=== PATIENT | female | born 1965 | race Caucasian/White ===

== ENCOUNTER → 2016-11-02 | Outpatient (CLI) | payer OTHER, MEDICARE ==
[~2016-11-02] VITALS: Ht 167.6 cm; Wt 134.3 kg
[~2016-11-02] MED LIST: ADIPEX-P37.5 MG PO; ALEVE 220MG220 MG PO; ARTHROTEC 775 MG/TAB PO; ASPIRIN 32325 MG/TAB PO; CALAN120 MG PO; CALCIUM + D 5001 TAB PO; CALCIUM 600600 M2 PO; COLACE 100100 MG/CAP PO; CRESTOR20 MG PO; CRESTOR40 MG PO; DALMANE30 MG PO; DOXYCYCLINE 10100 MG PO; ENABLEX15 MG PO; FISH OIL 1000MG1 CAP PO; IMITREX100 MG PO; INDERAL LA 80MG80 MG PO; INDOCIN 25MG CA25 MG PO; JANUMET 500 MG-1 TAB PO; KLONOPIN 1MG1 MG PO; KLONOPIN1 MG PO; LAMICTAL 100MG100 MG PO; LAMICTAL 25MG T25 MG PO; LEVOXYL0.05 MG PO; LEVOXYL0.075 MG PO; LEXAPRO20 MG PO; LIDOCAINE NS; MAG-OX 400400 MG/TAB PO; METAXALL800 MG PO; MIDRIN 325 MG-11 CAP PO; MIRALAX PA17 GM/Dose PO; MIRALAX17 GM/DOSE PO; MOBIC15 MG PO; MULTI VITAMINS1 TAB PO; MYRBETR50MG PO; NAVANE; NAVANE10 MG PO; NEURONTIN100 MG/CAP PO; NEURONTIN300 MG/CAP PO; PHENTERMINE15 MG PO; PROBIOTIC PO; PROTONIX 40MG T40 MG PO; PROTONIX40 MG PO; RELPAX 40MG TAB40 MG PO; RELPAX40 MG PO; SAPHRIS10 MG SL; SENOKOT S 50 MG1 TAB PO; SENOKOT8.6 MG PO; SEROQUEL XR300 MG PO; SYSTANE 0.4%-0.1 SOL OP; THIOTHIXENE PO; TOPAMAX 100MG100 M1 PO; TOPAMAX100 MG PO; TOPAMAX50 MG PO; TORADOL 10MG TA10 MG PO; TRICOR145 MG PO; TRILIPIX 135MG PO; TYLENOL 500MG500 MG PO; VERAPAMIL120 MG PO; VESICARE5 MG PO; VICTOZA6 MG/ML SQ; VITAMIN E1000 U/CAP PO; VITAMIND3 5000 PO; WELLBUTRIN XL150 MG PO; ZOLOFT 50MG50 MG PO; ZYPREXA ZYD10 MG/TAB PO; [UNRECOGNIZED DRUG - OTHER]
[2016-11-02 16:09] VITALS: BP 144/73; PULSE 67
[2016-11-02 17:10] VITALS: BP 144/73; PULSE 67
== END ==
LOC: LIGHT 07:43 → BHSO 09:33 → LIGHT 16:05
DX: E11.9 Type 2 diabetes mellitus without complications (principal); G47.33 Obstructive sleep apnea (adult) (pediatric); E66.01 Morbid (severe) obesity due to excess calories; Z68.42 Body mass index [BMI] 45.0-49.9, adult; K21.9 Gastro-esophageal reflux disease without esophagitis

== ENCOUNTER → 2016-11-27 | Outpatient (CLI) | payer OTHER, MEDICARE | LOC: MC.RAD 11:25 | DX: Z12.31 Encounter for screening mammogram for malignant neoplasm of breast (principal) ==

== ENCOUNTER → 2016-12-10 | Outpatient (CLI) | payer OTHER, MEDICARE | LOC: BHSO 09:37 | DX: F41.1 Generalized anxiety disorder (principal) ==

== ENCOUNTER → 2016-12-17 | Outpatient (CLI) | payer OTHER, MEDICARE ==
[~2016-12-17] VITALS: Ht 167.6 cm; Wt 133.6 kg
[2016-12-17 10:42] VITALS: BP 131/61; PULSE 75
== END ==
LOC: LIGHT 10:35
DX: E11.9 Type 2 diabetes mellitus without complications (principal); K21.9 Gastro-esophageal reflux disease without esophagitis; G47.33 Obstructive sleep apnea (adult) (pediatric); E66.01 Morbid (severe) obesity due to excess calories; Z68.42 Body mass index [BMI] 45.0-49.9, adult

== ENCOUNTER → 2017-01-21 | Outpatient (CLI) | payer OTHER, MEDICARE ==
[~2017-01-21] VITALS: Ht 167.6 cm; Wt 135.9 kg
[2017-01-21 12:23] VITALS: BP 140/80; PULSE 80
== END ==
LOC: LIGHT 10:24
DX: E11.9 Type 2 diabetes mellitus without complications (principal); G47.33 Obstructive sleep apnea (adult) (pediatric); K21.9 Gastro-esophageal reflux disease without esophagitis; E66.01 Morbid (severe) obesity due to excess calories; Z68.42 Body mass index [BMI] 45.0-49.9, adult; Z90.3 Acquired absence of stomach [part of]; Z90.49 Acquired absence of other specified parts of digestive tract

== ENCOUNTER → 2017-01-21 | Outpatient (CLI) | payer OTHER, MEDICARE | LOC: BHSO 10:59 | DX: F20.9 Schizophrenia, unspecified (principal) ==

== ENCOUNTER 2017-02-13 22:42 | Emergency (ER) | payer OTHER, MEDICARE ==
[~2017-02-13] VITALS: Ht 167.6 cm; Wt 134.5 kg
[~2017-02-13 22:42] MED LIST changes: -ALEVE 220MG220 MG PO; -INDERAL LA 80MG80 MG PO; -MAG-OX 400400 MG/TAB PO; -SYSTANE 0.4%-0.1 SOL OP; -TORADOL 10MG TA10 MG PO; -TYLENOL 500MG500 MG PO
[2017-02-13 22:46] VITALS: TEMP 98
[2017-02-14 01:00] VITALS: BP 120/63; PULSE 60
[2017-02-22] MEDS ORDERED: INDERAL LA 80MG80 MG PO (15:28)
[2017-05-27] MEDS ORDERED: MAG-OX 400400 MG/TAB PO (13:12)
[2017-05-31] MEDS ORDERED: TORADOL 10MG TA10 MG PO (10:08)
[2017-05-31] MEDS ORDERED: SYSTANE 0.4%-0.1 SOL OP (10:08)
[2017-05-31] MEDS ORDERED: TYLENOL 500MG500 MG PO (10:10)
[2017-05-31] MEDS ORDERED: MIDRIN 325 MG-11 CAP PO (10:10)
[2017-05-31] MEDS ORDERED: ALEVE 220MG220 MG PO (10:11)
== END 2017-02-14 01:00 | disposition home or self-care (01) ==
LOC: COL.ER 22:42
DX: R51 Headache (principal); G43.909 Migraine, unspecified, not intractable, without status migrainosus; F25.9 Schizoaffective disorder, unspecified; F32.9 Major depressive disorder, single episode, unspecified; E11.9 Type 2 diabetes mellitus without complications; I10 Essential (primary) hypertension; Z98.84 Bariatric surgery status
CPT/HCPCS: J1100; J1110; J1885; J7030

== ENCOUNTER → 2017-02-22 | Outpatient (CLI) | payer OTHER, MEDICARE ==
[~2017-02-22] VITALS: Ht 167.6 cm; Wt 133.1 kg
[~2017-02-22] MED LIST changes: +ALEVE 220MG220 MG PO; +INDERAL LA 80MG80 MG PO; +MAG-OX 400400 MG/TAB PO; +SYSTANE 0.4%-0.1 SOL OP; +TORADOL 10MG TA10 MG PO; +TYLENOL 500MG500 MG PO
[2017-02-22 15:28] VITALS: BP 123/65; PULSE 66
[2017-03-01 09:44] VITALS: BP 116/59; PULSE 62
[2017-03-15 11:39] VITALS: BP 111/71; PULSE 67
== END ==
LOC: LIGHT 14:55
DX: E11.9 Type 2 diabetes mellitus without complications (principal); G47.33 Obstructive sleep apnea (adult) (pediatric); E66.01 Morbid (severe) obesity due to excess calories; Z68.42 Body mass index [BMI] 45.0-49.9, adult; Z71.3 Dietary counseling and surveillance; K21.9 Gastro-esophageal reflux disease without esophagitis

== ENCOUNTER → 2017-03-05 | Outpatient (CLI) | payer OTHER, MEDICARE | LOC: BHSO 11:23 | DX: F20.9 Schizophrenia, unspecified (principal) ==

== ENCOUNTER → 2017-04-15 | Outpatient (CLI) | payer OTHER, MEDICARE ==
[~2017-04-15] VITALS: Ht 167.6 cm; Wt 134.5 kg
[2017-04-15 11:16] VITALS: BP 119/66; PULSE 56
== END ==
LOC: LIGHT 11:15
DX: E11.9 Type 2 diabetes mellitus without complications (principal); G47.33 Obstructive sleep apnea (adult) (pediatric); E66.01 Morbid (severe) obesity due to excess calories; Z68.42 Body mass index [BMI] 45.0-49.9, adult; Z71.3 Dietary counseling and surveillance; K21.9 Gastro-esophageal reflux disease without esophagitis

== ENCOUNTER → 2017-05-06 | Outpatient (CLI) | payer OTHER, MEDICARE | LOC: BHSO 10:45 | DX: F25.0 Schizoaffective disorder, bipolar type (principal) ==

== ENCOUNTER → 2017-05-27 | Outpatient (CLI) | payer OTHER, MEDICARE ==
[~2017-05-27] VITALS: Ht 167.6 cm; Wt 134.9 kg
[~2017-05-27] MED LIST changes: +DEPAKOTE ER 25250 MG PO
[2017-05-27 13:13] VITALS: BP 120/56; PULSE 60
== END ==
LOC: LIGHT 13:02
DX: E11.9 Type 2 diabetes mellitus without complications (principal); G47.33 Obstructive sleep apnea (adult) (pediatric); E66.01 Morbid (severe) obesity due to excess calories; Z68.43 Body mass index [BMI] 50.0-59.9, adult; Z71.3 Dietary counseling and surveillance; K21.9 Gastro-esophageal reflux disease without esophagitis

== ENCOUNTER → 2017-07-01 | Outpatient (CLI) | payer OTHER, MEDICARE ==
[~2017-07-01] VITALS: Ht 167.6 cm; Wt 133.6 kg
[2017-07-01 11:44] VITALS: BP 118/84; PULSE 72
== END ==
LOC: LIGHT 09:44
DX: E11.9 Type 2 diabetes mellitus without complications (principal); G47.33 Obstructive sleep apnea (adult) (pediatric); E66.01 Morbid (severe) obesity due to excess calories; Z68.42 Body mass index [BMI] 45.0-49.9, adult; Z71.3 Dietary counseling and surveillance; K21.9 Gastro-esophageal reflux disease without esophagitis

== ENCOUNTER → 2017-07-08 | Outpatient (CLI) | payer OTHER, MEDICARE | LOC: BHSO 11:23 | DX: F20.9 Schizophrenia, unspecified (principal) ==

== ENCOUNTER → 2017-08-12 | Outpatient (CLI) | payer OTHER, MEDICARE ==
[~2017-08-12] VITALS: Ht 167.6 cm; Wt 135.2 kg
[~2017-08-12] MED LIST changes: +ZANAFLEX 4MG TAB4 MG PO
[2017-08-12 14:15] VITALS: BP 130/76; PULSE 56
== END ==
LOC: LIGHT 11:09
DX: E11.9 Type 2 diabetes mellitus without complications (principal); G47.33 Obstructive sleep apnea (adult) (pediatric); E66.01 Morbid (severe) obesity due to excess calories; Z68.42 Body mass index [BMI] 45.0-49.9, adult; Z71.3 Dietary counseling and surveillance; K21.9 Gastro-esophageal reflux disease without esophagitis

== ENCOUNTER → 2017-08-31 | Outpatient (CLI) | payer OTHER, MEDICARE | LOC: BHSO 09:54 | DX: F31.73 Bipolar disorder, in partial remission, most recent episode manic (principal) ==

== ENCOUNTER → 2017-10-22 | Outpatient (CLI) | payer OTHER, MEDICARE ==
[~2017-10-22] MED LIST changes: +MELATONIN5 M1 SL; +TOPAMAX 25MG25 M1 PO; +ZESTRIL 20MG TA20 MG PO
== END ==
LOC: BHSO 11:08
DX: F31.73 Bipolar disorder, in partial remission, most recent episode manic (principal)
CPT/HCPCS: G0463

== ENCOUNTER → 2017-10-28 | Outpatient (CLI) | payer OTHER, MEDICARE ==
[~2017-10-28] VITALS: Ht 167.6 cm; Wt 141.7 kg
[2017-10-28 10:56] VITALS: BP 116/80; PULSE 72
== END ==
LOC: SUN.DIA 07-21 09:44 → LIGHT 10:24
DX: E11.9 Type 2 diabetes mellitus without complications (principal); G47.33 Obstructive sleep apnea (adult) (pediatric); E66.01 Morbid (severe) obesity due to excess calories; Z68.43 Body mass index [BMI] 50.0-59.9, adult; Z71.3 Dietary counseling and surveillance; K21.9 Gastro-esophageal reflux disease without esophagitis
CPT/HCPCS: G0463

== ENCOUNTER → 2017-11-25 | Outpatient (CLI) | payer OTHER, MEDICARE ==
[~2017-11-25] VITALS: Ht 167.6 cm; Wt 138.8 kg
[2017-11-25 09:55] VITALS: BP 114/80; PULSE 64
== END ==
LOC: LIGHT 09:00
DX: E11.9 Type 2 diabetes mellitus without complications (principal); G47.33 Obstructive sleep apnea (adult) (pediatric); E66.01 Morbid (severe) obesity due to excess calories; Z68.42 Body mass index [BMI] 45.0-49.9, adult; Z71.3 Dietary counseling and surveillance; K21.9 Gastro-esophageal reflux disease without esophagitis
CPT/HCPCS: G0463

== ENCOUNTER 2017-11-29 19:43 | Emergency (ER) | payer OTHER, MEDICARE ==
[~2017-11-29] VITALS: Ht 167.6 cm; Wt 130.4 kg
[2017-11-29 19:49] VITALS: BP 115/58; TEMP 97
[2017-11-29 22:51] VITALS: PULSE 76
== END 2017-11-29 22:54 | disposition home or self-care (01) ==
LOC: COL.ER 19:43
DX: G43.909 Migraine, unspecified, not intractable, without status migrainosus (principal); E11.9 Type 2 diabetes mellitus without complications; I10 Essential (primary) hypertension; F31.9 Bipolar disorder, unspecified; E03.9 Hypothyroidism, unspecified; Z90.49 Acquired absence of other specified parts of digestive tract; Z90.89 Acquired absence of other organs; Z98.84 Bariatric surgery status; Z98.890 Other specified postprocedural states
CPT/HCPCS: J1200; J1885; J7030

== ENCOUNTER → 2017-12-09 | Outpatient (CLI) | payer OTHER, MEDICARE | LOC: MC.RAD 14:20 | DX: Z12.31 Encounter for screening mammogram for malignant neoplasm of breast (principal) ==

== ENCOUNTER → 2017-12-23 | Outpatient (CLI) | payer OTHER, MEDICARE ==
[~2017-12-23] VITALS: Ht 167.6 cm; Wt 138.3 kg
[~2017-12-23] MED LIST changes: +ATARAX 25MG25 MG/TAB PO; +LOMAIRA8 MG PO
[2017-12-23 11:31] VITALS: BP 120/84; PULSE 68
== END ==
LOC: LIGHT 10:56
DX: E11.9 Type 2 diabetes mellitus without complications (principal); G47.33 Obstructive sleep apnea (adult) (pediatric); E66.01 Morbid (severe) obesity due to excess calories; Z68.42 Body mass index [BMI] 45.0-49.9, adult; Z71.3 Dietary counseling and surveillance; K21.9 Gastro-esophageal reflux disease without esophagitis
CPT/HCPCS: G0463

== ENCOUNTER → 2018-01-17 | Outpatient (CLI) | payer OTHER, MEDICARE | LOC: MHCPAIN 14:51 | DX: G89.29 Other chronic pain (principal); M47.812 Spondylosis without myelopathy or radiculopathy, cervical region; R51 Headache | CPT/HCPCS: G0463 ==

== ENCOUNTER → 2018-01-21 | Outpatient (CLI) | payer OTHER, MEDICARE ==
[~2018-01-21] MED LIST changes: +SKELAXIN 800MG800 MG PO; +VITAMIN B COMPL1 SGL PO
== END ==
LOC: BHSO 11:04
DX: F25.0 Schizoaffective disorder, bipolar type (principal)
CPT/HCPCS: G0463

== ENCOUNTER → 2018-01-27 | Outpatient (CLI) | payer OTHER, MEDICARE ==
[~2018-01-27] VITALS: Ht 167.6 cm; Wt 136.8 kg
[2018-01-27 08:54] VITALS: BP 124/84; PULSE 76
== END ==
LOC: LIGHT 08:38
DX: E11.9 Type 2 diabetes mellitus without complications (principal); G47.33 Obstructive sleep apnea (adult) (pediatric); E66.01 Morbid (severe) obesity due to excess calories; Z68.42 Body mass index [BMI] 45.0-49.9, adult; Z71.3 Dietary counseling and surveillance; K21.9 Gastro-esophageal reflux disease without esophagitis
CPT/HCPCS: G0463

== ENCOUNTER 2018-02-28 05:59 | Emergency (ER) | payer OTHER, MEDICARE ==
[~2018-02-28] VITALS: Ht 167.6 cm; Wt 133.5 kg
[~2018-02-28 05:59] MED LIST changes: +D3-5050000 IU PO; -VITAMIND3 5000 PO
[2018-02-28 06:04] VITALS: TEMP 97.4
[2018-02-28] MEDS ORDERED: PHENERGAN 25 TA25 MG PO (06:21)
[2018-02-28] MEDS ORDERED: TORADOL 10MG TA10 MG PO (07:33)
[2018-02-28 08:20] VITALS: BP 124/82; PULSE 71
== END 2018-02-28 08:26 | disposition home or self-care (01) ==
LOC: COL.ER 05:59
DX: G43.909 Migraine, unspecified, not intractable, without status migrainosus (principal)
CPT/HCPCS: J0780; J1200; J1885; J2550; J7030

== ENCOUNTER → 2018-03-10 | Outpatient (CLI) | payer OTHER, MEDICARE ==
[~2018-03-10] VITALS: Ht 167.6 cm; Wt 138.6 kg
[~2018-03-10] MED LIST changes: +PHENERGAN 25 TA25 MG PO
[2018-03-10 11:38] VITALS: BP 120/76; PULSE 68
== END ==
LOC: LIGHT 11:07
DX: E11.9 Type 2 diabetes mellitus without complications (principal); G47.33 Obstructive sleep apnea (adult) (pediatric); E66.01 Morbid (severe) obesity due to excess calories; Z68.42 Body mass index [BMI] 45.0-49.9, adult; Z71.3 Dietary counseling and surveillance; K21.9 Gastro-esophageal reflux disease without esophagitis
CPT/HCPCS: G0463

== ENCOUNTER 2018-05-01 11:48 | Emergency (ER) | payer OTHER, MEDICARE ==
[~2018-05-01] VITALS: Ht 167.6 cm; Wt 143.2 kg
[2018-05-01 11:50] VITALS: TEMP 97.9
[2018-05-01 12:20] LABS: BASO % 0.4 % (0.0-2.0); EOS # 0.2 (0.0-0.7); EOS % 1.6 % (0-4.0); GRAN # 6.7 (1.4-6.5); GRAN % 68.5 % (42.2-75.2); HEMATOCRIT 39.9 % (37.0-47.0); HEMOGLOBIN 12.7 g/dl (12.5-16.0); LYMPH # 2.2 (1.2-3.4); LYMPH % 22.2 % (20.0-51.0); MEAN CELL VOLUME 87 fl (80.0-100.0); MEAN CORPUSCULAR HEMOGLOBIN 28 pg (27.0-31.0); MEAN CORPUSCULAR HGB CONC 32 g/dl (33.0-37.0); MONO # 0.7 (0.1-0.6); MONO % 6.9 % (1.7-9.3); PLATELET COUNT 235 K/mm3 (130-400); RED BLOOD COUNT 4.57 M/mm3 (4.10-5.30); REDCELL DISTRIBUTION WIDTH-CV 13.6 % (11.5-14.5)
[2018-05-01 12:28] LABS: ALANINE AMINOTRANSFERASE 26 U/L (9-52); ALBUMIN 3.9 gm/dL (3.5-5.0); ALKALINE PHOSPHATASE 55 U/L (50-136); ANION GAP 9 mmol/L (7-16); AST,SGOT 29 U/L (15-37); BILIRUBIN,TOTAL 0.2 mg/dL (0.0-1.0); BLOOD UREA NITROGEN 11 mg/dL (7-17); CALCIUM 8.9 mg/dL (8.4-10.2); CARBON DIOXIDE 28 mmol/L (22-30); CHLORIDE 105 mmol/L (98-107); CREATININE, serum 0.65 mg/dL (0.52-1.25); GLUCOSE 121 mg/dL (74-106); SODIUM 142 mmol/L (137-145); TOTAL PROTEIN 6.9 gm/dL (6.4-8.2)
[2018-05-01 12:42] LABS: TROPONIN-I < 0.012 ng/mL (0.000-0.034)
[2018-05-01 15:28] VITALS: BP 132/69; PULSE 69
== END 2018-05-01 15:37 | disposition home or self-care (01) ==
LOC: COL.ER 11:48
PROVIDERS: Emergency Medicine
DX: R07.89 Other chest pain (principal); E11.9 Type 2 diabetes mellitus without complications; F25.9 Schizoaffective disorder, unspecified
CPT/HCPCS: J1885; J2765; J7030

== ENCOUNTER → 2018-05-12 | Outpatient (CLI) | payer OTHER, MEDICARE ==
[~2018-05-12] VITALS: Ht 167.6 cm; Wt 138.1 kg
[~2018-05-12] MED LIST changes: +FLOMAX 0.40.4 MG/CAP PO; +ZESTRIL 10MG10 MG PO
[2018-05-12 11:37] VITALS: BP 124/86; PULSE 80
== END ==
LOC: LIGHT 11:10
DX: E11.9 Type 2 diabetes mellitus without complications (principal); G47.33 Obstructive sleep apnea (adult) (pediatric); K21.9 Gastro-esophageal reflux disease without esophagitis; E66.01 Morbid (severe) obesity due to excess calories; Z68.43 Body mass index [BMI] 50.0-59.9, adult; Z71.3 Dietary counseling and surveillance
CPT/HCPCS: G0463

== ENCOUNTER → 2018-05-13 | Outpatient (CLI) | payer OTHER, MEDICARE | LOC: BHSO 13:01 | DX: F25.0 Schizoaffective disorder, bipolar type (principal) | CPT/HCPCS: G0463 ==

== ENCOUNTER → 2018-06-16 | Outpatient (CLI) | payer OTHER, MEDICARE ==
[~2018-06-16] VITALS: Ht 167.6 cm; Wt 140.6 kg
[2018-06-16 13:38] VITALS: BP 126/84; PULSE 72
== END ==
LOC: LIGHT 11:39
DX: E11.9 Type 2 diabetes mellitus without complications (principal); G47.33 Obstructive sleep apnea (adult) (pediatric); K21.9 Gastro-esophageal reflux disease without esophagitis; E66.01 Morbid (severe) obesity due to excess calories; Z68.42 Body mass index [BMI] 45.0-49.9, adult; Z71.3 Dietary counseling and surveillance
CPT/HCPCS: G0463

== ENCOUNTER → 2018-08-12 | Outpatient (CLI) | payer OTHER, MEDICARE | LOC: BHSO 13:08 | DX: F25.0 Schizoaffective disorder, bipolar type (principal) | CPT/HCPCS: G0463 ==

== ENCOUNTER 2018-08-24 19:40 | Emergency (ER) | payer OTHER, MEDICARE ==
[~2018-08-24] VITALS: Ht 167.6 cm; Wt 140.0 kg
[2018-08-24 19:48] VITALS: TEMP 98
[2018-08-24] MEDS ORDERED: SAPHRIS10 MG SL (21:16)
[2018-08-24 22:06] VITALS: BP 122/71; PULSE 76
== END 2018-08-24 22:17 | disposition home or self-care (01) ==
LOC: COL.ER 19:40
DX: G43.909 Migraine, unspecified, not intractable, without status migrainosus (principal); E11.9 Type 2 diabetes mellitus without complications; E03.9 Hypothyroidism, unspecified; F31.9 Bipolar disorder, unspecified; F25.9 Schizoaffective disorder, unspecified; Z90.89 Acquired absence of other organs; Z90.49 Acquired absence of other specified parts of digestive tract
CPT/HCPCS: J1200; J1885; J2060; J2765; J7040

== ENCOUNTER 2018-09-16 03:16 | Emergency (ER) | payer OTHER, MEDICARE ==
[~2018-09-16] VITALS: Ht 167.6 cm; Wt 140.0 kg
[~2018-09-16 03:16] MED LIST changes: +CRESTOR 10MG10 MG PO; -CRESTOR20 MG PO; +PROBIOTIC ACID1 EAC3 PO; -PROBIOTIC PO; -SENOKOT S 50 MG1 TAB PO
[2018-09-16 03:25] VITALS: TEMP 98.6
[2018-09-16] MEDS ORDERED: VITAMIND3 5000 (03:57)
[2018-09-16] MEDS ORDERED: SAPHRIS5 MG SL (04:00)
[2018-09-16] MEDS ORDERED: LOMAIRA8 MG PO (04:03)
[2018-09-16] MEDS ORDERED: AIMOVIG AU70 MG/1 ML SQ (04:04)
[2018-09-16] MEDS ORDERED: KENALOG DENTAL P5 GM DT (04:05)
[2018-09-16 07:24] VITALS: BP 128/60; PULSE 82
== END 2018-09-16 07:25 | disposition home or self-care (01) ==
LOC: COL.ER 03:16
DX: G43.909 Migraine, unspecified, not intractable, without status migrainosus (principal); E11.9 Type 2 diabetes mellitus without complications; I10 Essential (primary) hypertension; E03.9 Hypothyroidism, unspecified; E78.5 Hyperlipidemia, unspecified; F20.9 Schizophrenia, unspecified; E66.9 Obesity, unspecified
CPT/HCPCS: J1170; J1885

== ENCOUNTER 2018-09-19 03:38 | Emergency (ER) | payer OTHER, MEDICARE ==
[~2018-09-19] VITALS: Ht 167.6 cm; Wt 140.0 kg
[~2018-09-19 03:38] MED LIST changes: +AIMOVIG AU70 MG/1 ML SQ; +KENALOG DENTAL P5 GM DT; +SAPHRIS5 MG SL; +VITAMIND3 5000
[2018-09-19 04:31] VITALS: TEMP 98.5
[2018-09-19] MEDS ORDERED: ZOMIG5 M1 NS (04:40)
[2018-09-19 05:33] VITALS: BP 128/86; PULSE 78
== END 2018-09-19 05:33 | disposition home or self-care (01) ==
LOC: COL.ER 03:38
DX: G43.909 Migraine, unspecified, not intractable, without status migrainosus (principal)
CPT/HCPCS: J1200; J2550; J7030

== ENCOUNTER → 2018-09-22 | Outpatient (CLI) | payer OTHER, MEDICARE ==
[~2018-09-22] VITALS: Ht 167.6 cm; Wt 142.0 kg
[~2018-09-22] MED LIST changes: +ZOMIG5 M1 NS
[2018-09-22 10:55] VITALS: BP 126/76; PULSE 64
== END ==
LOC: LIGHT 10:48
DX: E11.9 Type 2 diabetes mellitus without complications (principal); G47.33 Obstructive sleep apnea (adult) (pediatric); K21.9 Gastro-esophageal reflux disease without esophagitis; E66.01 Morbid (severe) obesity due to excess calories; Z68.43 Body mass index [BMI] 50.0-59.9, adult; Z71.3 Dietary counseling and surveillance
CPT/HCPCS: G0463

== ENCOUNTER → 2018-10-21 | Outpatient (CLI) | payer OTHER, MEDICARE | LOC: BHSO 13:16 | DX: F25.0 Schizoaffective disorder, bipolar type (principal) | CPT/HCPCS: G0463 ==

== ENCOUNTER → 2018-11-03 | Outpatient (CLI) | payer OTHER, MEDICARE ==
[~2018-11-03] VITALS: Ht 167.6 cm; Wt 140.6 kg
[2018-11-03 11:22] VITALS: BP 136/90; PULSE 64
== END ==
LOC: LIGHT 10:40
DX: E11.9 Type 2 diabetes mellitus without complications (principal); G47.33 Obstructive sleep apnea (adult) (pediatric); K21.9 Gastro-esophageal reflux disease without esophagitis; E66.01 Morbid (severe) obesity due to excess calories; Z68.43 Body mass index [BMI] 50.0-59.9, adult; Z71.3 Dietary counseling and surveillance
CPT/HCPCS: G0463

== ENCOUNTER → 2018-12-15 | Outpatient (CLI) | payer OTHER, MEDICARE ==
[~2018-12-15] VITALS: Ht 167.6 cm; Wt 140.4 kg
[~2018-12-15] MED LIST changes: +ADVIL MIGRAINE200 MG PO; +BACTROBAN 22GM22 GM TP; +BOTOX200 U INJ; +DETROL LA4 PO; +FIORICET 325 MG1 TA1 PO; -MYRBETR50MG PO; +NAC600 MG PO; -SAPHRIS5 MG SL; +SENOKOT S 50 MG1 TAB PO; +TUMERIC SUPPLEMENT; +VITAMIND3 5000 PO
[2018-12-15 11:11] VITALS: BP 120/70; PULSE 60
== END ==
LOC: LIGHT 10:44
DX: E11.65 Type 2 diabetes mellitus with hyperglycemia (principal); G47.33 Obstructive sleep apnea (adult) (pediatric); K21.9 Gastro-esophageal reflux disease without esophagitis; E66.01 Morbid (severe) obesity due to excess calories; Z68.43 Body mass index [BMI] 50.0-59.9, adult; Z71.3 Dietary counseling and surveillance
CPT/HCPCS: G0463

== ENCOUNTER → 2018-12-19 | Outpatient (CLI) | payer OTHER, MEDICARE | LOC: COL.RAD 10:07 | DX: G43.709 Chronic migraine without aura, not intractable, without status migrainosus (principal) | CPT/HCPCS: A9585 ==

== ENCOUNTER 2018-12-24 05:58 | Emergency (ER) | payer OTHER, MEDICARE ==
[~2018-12-24] VITALS: Ht 167.6 cm; Wt 140.9 kg
[2018-12-24 06:01] VITALS: TEMP 98.7
[2018-12-24] MEDS ORDERED: LEXAPRO 10MG10 MG PO (06:39)
[2018-12-24] MEDS ORDERED: SYNTHROID0.075 MG/T PO (06:39)
[2018-12-24] MEDS ORDERED: WELLBUTRIN XL150 MG PO (06:40)
[2018-12-24] MEDS ORDERED: CRESTOR 10MG10 MG PO (06:41)
[2018-12-24] MEDS ORDERED: DETROL LA4 PO (06:42)
[2018-12-24] MEDS ORDERED: SAPHRIS10 MG SL (06:43)
[2018-12-24] MEDS ORDERED: LAMICTAL 100MG100 MG PO (06:43)
[2018-12-24] MEDS ORDERED: PROTONIX 40MG T40 MG PO (06:44)
[2018-12-24] MEDS ORDERED: LAMICTAL 25MG T25 MG PO (06:44)
[2018-12-24] MEDS ORDERED: TRILIPIX 135MG PO (06:44)
[2018-12-24] MEDS ORDERED: PRINIVIL10 MG PO (06:45)
[2018-12-24] MEDS ORDERED: FLOMAX 0.40.4 MG/CAP PO (06:45)
[2018-12-24] MEDS ORDERED: CARAFATE S1 GM/10 ML PO (07:52)
[2018-12-24 08:09] VITALS: BP 106/65; PULSE 76
== END 2018-12-24 08:10 | disposition home or self-care (01) ==
LOC: COL.ER 05:58
DX: R13.10 Dysphagia, unspecified (principal); E11.9 Type 2 diabetes mellitus without complications; I10 Essential (primary) hypertension; E78.00 Pure hypercholesterolemia, unspecified; G43.909 Migraine, unspecified, not intractable, without status migrainosus
CPT/HCPCS: J1885

== ENCOUNTER → 2019-01-04 | Outpatient (CLI) | payer OTHER, MEDICARE ==
[~2019-01-04] MED LIST changes: +CARAFATE S1 GM/10 ML PO; +LEXAPRO 10MG10 MG PO; +PRINIVIL10 MG PO; +SYNTHROID0.075 MG/T PO
== END ==
LOC: MC.RAD 10:38
DX: Z12.31 Encounter for screening mammogram for malignant neoplasm of breast (principal)

== ENCOUNTER → 2019-01-12 | Outpatient (CLI) | payer OTHER, MEDICARE ==
[~2019-01-12] VITALS: Ht 167.6 cm; Wt 139.7 kg
[~2019-01-12] MED LIST changes: +AJOVY225 MG/1.5 SQ; +MYRBETR50MG PO
[2019-01-12 11:07] VITALS: BP 130/76; PULSE 84
== END ==
LOC: LIGHT 10:51
DX: E11.65 Type 2 diabetes mellitus with hyperglycemia (principal); G47.33 Obstructive sleep apnea (adult) (pediatric); K21.9 Gastro-esophageal reflux disease without esophagitis; E66.01 Morbid (severe) obesity due to excess calories; Z68.42 Body mass index [BMI] 45.0-49.9, adult; Z71.3 Dietary counseling and surveillance
CPT/HCPCS: G0463

== ENCOUNTER → 2019-01-17 | Outpatient (CLI) | payer OTHER, MEDICARE | LOC: BHSO 10:23 | DX: F25.0 Schizoaffective disorder, bipolar type (principal) | CPT/HCPCS: G0463 ==

== ENCOUNTER → 2019-02-23 | Outpatient (CLI) | payer OTHER, MEDICARE ==
[~2019-02-23] VITALS: Ht 167.6 cm; Wt 139.3 kg
[~2019-02-23] MED LIST changes: +LATUDA40 MG PO; +MAGNESIUM500 MG PO
[2019-02-23 10:43] VITALS: BP 116/80; PULSE 76
== END ==
LOC: LIGHT 10:30
DX: E11.65 Type 2 diabetes mellitus with hyperglycemia (principal); G47.33 Obstructive sleep apnea (adult) (pediatric); K21.9 Gastro-esophageal reflux disease without esophagitis; E66.01 Morbid (severe) obesity due to excess calories; Z68.42 Body mass index [BMI] 45.0-49.9, adult; Z71.3 Dietary counseling and surveillance
CPT/HCPCS: G0463

== ENCOUNTER → 2019-02-28 | Outpatient (CLI) | payer OTHER, MEDICARE | LOC: BHSO 10:12 | DX: F25.0 Schizoaffective disorder, bipolar type (principal) | CPT/HCPCS: G0463 ==

== ENCOUNTER → 2019-03-29 | Outpatient (CLI) | payer OTHER, MEDICARE | LOC: BHSO 13:36 | DX: F25.0 Schizoaffective disorder, bipolar type (principal) | CPT/HCPCS: G0463 ==

== ENCOUNTER → 2019-05-04 | Outpatient (CLI) | payer OTHER, MEDICARE ==
[~2019-05-04] VITALS: Ht 167.6 cm; Wt 139.5 kg
[~2019-05-04] MED LIST changes: +ALDACTONE50 MG PO; +B COMPLEX #11 TAB PO; +CYMBALTA 60MG60 MG PO; +DESOWEN0.05% TP; -MAGNESIUM500 MG PO; +MULTIPLE VITAMI1 CAP PO; +TUMERIC PO; +VIACTIVE PO; +WELLBUTRIN SR200 MG PO
[2019-05-04 13:11] VITALS: BP 112/84; PULSE 84
== END ==
LOC: LIGHT 03-23 14:46
DX: E11.65 Type 2 diabetes mellitus with hyperglycemia (principal); G47.33 Obstructive sleep apnea (adult) (pediatric); K21.9 Gastro-esophageal reflux disease without esophagitis; E66.01 Morbid (severe) obesity due to excess calories; Z68.43 Body mass index [BMI] 50.0-59.9, adult; Z71.3 Dietary counseling and surveillance
CPT/HCPCS: G0463

== ENCOUNTER → 2019-05-04 | Outpatient (CLI) | payer OTHER, MEDICARE | LOC: BHSO 14:18 | DX: F25.0 Schizoaffective disorder, bipolar type (principal) | CPT/HCPCS: G0463 ==

== ENCOUNTER 2019-06-05 11:21 | Day surgery (SDC) | payer OTHER, MEDICARE ==
[~2019-06-05] VITALS: Ht 167.7 cm; Wt 139.7 kg
[2019-06-05] VITALS (11 sets, daily range): BP systolic 97–135; BP diastolic 53–84; PULSE 63–96; TEMP 97.4
[~2019-06-05 11:21] MED LIST changes: +BOTOX200 U; +EXCEDRIN1 TAB PO; +SYSTANE GEL EYE10 ML OP; +ZANTAC 150MG T150 MG PO
[2019-06-05 12:24] LABS: HEMATOCRIT 39.6 % (37.0-47.0); HEMOGLOBIN 12.6 g/dl (12.5-16.0); MEAN CELL VOLUME 85 fl (80.0-100.0); MEAN CORPUSCULAR HEMOGLOBIN 27 pg (27.0-31.0); MEAN CORPUSCULAR HGB CONC 32 g/dl (33.0-37.0); MEAN PLATELET VOLUME 10.7 fl (7.4-10.4); PLATELET COUNT 251 K/mm3 (130-400); RED BLOOD COUNT 4.68 M/mm3 (4.10-5.30); REDCELL DISTRIBUTION WIDTH-CV 14.7 % (11.5-14.5)
[2019-06-05 12:35] LABS: PROTHROMBIN TIME 11.7 SECONDS (9.7-12.8)
[2019-06-05 12:38] LABS: CALCIUM 9.3 mg/dL (8.4-10.2); CREATININE, serum 0.58 (0.52-1.25); POTASSIUM 4.1 mmol/L (3.4-5.0)
[2019-06-05] MEDS ORDERED: ASPIRIN 81M81 MG/TA2 PO (12:49)
--- NOTE | 2019-06-05 14:52 | NUR ---
Pt to procedure.
--- NOTE | 2019-06-05 15:12 | NUR ---
SEE MERGE DOCUMENTATION FOR MEDICATION ADMINISTRATION TIMES AND INTRA/POST PROCEDURE SEDATION ASSESSMENTS. PT EATING LIGHT BREAKFAST THIS AM, NOTIFIED AND OK TO PROCEED. PLAN FOR RIGHT RADIAL ARTERIAL ACCESS AND RIGHT FEMORAL VENOUS ACCESS.
--- NOTE | 2019-06-05 18:54 | NUR ---
Report to Marizol Acevedo.
--- NOTE | 2019-06-05 19:05 | NUR ---
removed radial band, no bleeding or pain or swelling, 2x2 dressing with coban applied, pt walked in neal, up to b/r, groin site remains the same. IV d'cd intact and pt dressed. no questions or concerns. Pt discharged via w/c to car with at 1920
== END 2019-06-05 19:20 | disposition home or self-care (01) ==
LOC: COL.CAR 11:21
PROVIDERS: Internal Medicine Cardiovascular Disease
DX: R07.89 Other chest pain (principal); I25.10 Atherosclerotic heart disease of native coronary artery without angina pectoris; I10 Essential (primary) hypertension; E11.9 Type 2 diabetes mellitus without complications; G47.33 Obstructive sleep apnea (adult) (pediatric); E78.5 Hyperlipidemia, unspecified; E03.9 Hypothyroidism, unspecified; Z79.899 Other long term (current) drug therapy; Z90.49 Acquired absence of other specified parts of digestive tract; Z98.84 Bariatric surgery status; E66.9 Obesity, unspecified; Z68.42 Body mass index [BMI] 45.0-49.9, adult; Z80.9 Family history of malignant neoplasm, unspecified
CPT/HCPCS: J1644; J2250; J3010; Q9967

== ENCOUNTER 2019-06-16 00:29 | Emergency (ER) | payer OTHER, MEDICARE ==
[~2019-06-16] VITALS: Ht 167.6 cm; Wt 136.4 kg
[~2019-06-16 00:29] MED LIST changes: +ASPIRIN 81M81 MG/TA2 PO
[2019-06-16 00:34] VITALS: BP 138/72; TEMP 98.5
[2019-06-16 01:34] LABS: BASO % 0.4 % (0.0-2.0); EOS # 0.1 (0.0-0.7); EOS % 1.2 % (0-4.0); GRAN # 6.8 (1.4-6.5); GRAN % 59.9 % (42.2-75.2); HEMOGLOBIN 13.3 g/dl (12.5-16.0); LYMPH # 3.4 (1.2-3.4); LYMPH % 30.1 % (20.0-51.0); MEAN CELL VOLUME 85 fl (80.0-100.0); MEAN CORPUSCULAR HEMOGLOBIN 27 pg (27.0-31.0); MEAN CORPUSCULAR HGB CONC 32 g/dl (33.0-37.0); MEAN PLATELET VOLUME 10.4 fl (7.4-10.4); MONO # 0.9 (0.1-0.6); MONO % 7.9 % (1.7-9.3); PLATELET COUNT 291 K/mm3 (130-400); RED BLOOD COUNT 4.97 M/mm3 (4.10-5.30); REDCELL DISTRIBUTION WIDTH-CV 14.6 % (11.5-14.5)
[2019-06-16 01:44] LABS: CALCIUM 9.6 mg/dL (8.4-10.2); CREATININE, serum 0.63 (0.52-1.25)
[2019-06-16 04:25] VITALS: PULSE 74
== END 2019-06-16 04:25 | disposition home or self-care (01) ==
LOC: COL.ER 00:29
PROVIDERS: Physician Assistant
DX: G43.909 Migraine, unspecified, not intractable, without status migrainosus (principal)
CPT/HCPCS: J1200; J1885; J2765; J7030

== ENCOUNTER 2019-06-26 02:06 | Emergency (ER) | payer OTHER, MEDICARE ==
[~2019-06-26] VITALS: Ht 167.6 cm; Wt 137.7 kg
[2019-06-26 02:10] VITALS: BP 133/88; TEMP 98
[2019-06-26 04:25] VITALS: PULSE 92
== END 2019-06-26 04:25 | disposition home or self-care (01) ==
LOC: COL.ER 02:06
DX: G43.909 Migraine, unspecified, not intractable, without status migrainosus (principal); I10 Essential (primary) hypertension; E11.9 Type 2 diabetes mellitus without complications; E03.9 Hypothyroidism, unspecified; E78.5 Hyperlipidemia, unspecified; K58.9 Irritable bowel syndrome, unspecified
CPT/HCPCS: J1200; J1885; J2550

== ENCOUNTER 2019-06-26 17:04 | Emergency (ER) | payer OTHER, MEDICARE ==
[~2019-06-26] VITALS: Ht 167.6 cm; Wt 137.7 kg
[2019-06-26 17:11] VITALS: BP 135/75; TEMP 98.5
[2019-06-26 18:42] LABS: BASO # 0.1 (0.0-0.2); BASO % 0.4 % (0.0-2.0); EOS # 0.2 (0.0-0.7); EOS % 1.6 % (0-4.0); GRAN # 6.8 (1.4-6.5); GRAN % 57.7 % (42.2-75.2); HEMATOCRIT 39.1 % (37.0-47.0); HEMOGLOBIN 12.6 g/dl (12.5-16.0); LYMPH # 3.8 (1.2-3.4); LYMPH % 32.3 % (20.0-51.0); MEAN CELL VOLUME 83 fl (80.0-100.0); MEAN CORPUSCULAR HEMOGLOBIN 27 pg (27.0-31.0); MEAN CORPUSCULAR HGB CONC 32 g/dl (33.0-37.0); MEAN PLATELET VOLUME 11.1 fl (7.4-10.4); MONO # 0.9 (0.1-0.6); MONO % 7.7 % (1.7-9.3); PLATELET COUNT 277 K/mm3 (130-400); RED BLOOD COUNT 4.69 M/mm3 (4.10-5.30); REDCELL DISTRIBUTION WIDTH-CV 14.2 % (11.5-14.5)
[2019-06-26 18:43] LABS: ALBUMIN 4.1 gm/dL (3.5-5.0); BILIRUBIN,TOTAL 0.3 mg/dL (0.0-1.0); C-REACTIVE PROTEIN 1.2 mg/dL (0.0-0.9); CALCIUM 8.9 mg/dL (8.4-10.2); CREATININE, serum 0.65 (0.52-1.25); POTASSIUM 3.9 mmol/L (3.4-5.0)
[2019-06-26 19:16] VITALS: PULSE 90
== END 2019-06-26 19:19 | disposition home or self-care (01) ==
LOC: COL.ER 17:04
PROVIDERS: Nurse Practitioner
DX: G43.909 Migraine, unspecified, not intractable, without status migrainosus (principal); E11.9 Type 2 diabetes mellitus without complications; I10 Essential (primary) hypertension; F32.9 Major depressive disorder, single episode, unspecified; E03.9 Hypothyroidism, unspecified; F25.9 Schizoaffective disorder, unspecified; K58.9 Irritable bowel syndrome, unspecified; Z79.82 Long term (current) use of aspirin
CPT/HCPCS: J1200; J1885; J2550

== ENCOUNTER 2019-06-26 22:35 | Emergency (ER) | payer OTHER, MEDICARE ==
[~2019-06-26] VITALS: Wt 137.7 kg
[2019-06-26 23:10] VITALS: BP 137/94; PULSE 75; TEMP 9.7
== END 2019-06-27 00:30 | disposition left against medical advice (07) ==
LOC: COL.ER 22:35
DX: G43.909 Migraine, unspecified, not intractable, without status migrainosus (principal)

== ENCOUNTER → 2019-06-27 | Outpatient (CLI) | payer OTHER, MEDICARE | LOC: BHSO 14:11 | DX: F25.0 Schizoaffective disorder, bipolar type (principal) | CPT/HCPCS: G0463 ==

== ENCOUNTER 2019-06-29 20:54 | Emergency (ER) | payer OTHER, MEDICARE ==
[~2019-06-29] VITALS: Ht 167.6 cm; Wt 138.6 kg
[2019-06-29 21:27] VITALS: TEMP 98.1
[2019-06-29 21:30] LABS: COLLECTION METHOD CLEAN CATCH
[2019-06-29 21:35] LABS: BASO # 0.1 (0.0-0.2); BASO % 0.5 % (0.0-2.0); EOS # 0.2 (0.0-0.7); EOS % 1.7 % (0-4.0); GRAN % 53.2 % (42.2-75.2); HEMATOCRIT 37.4 % (37.0-47.0); LYMPH # 3.3 (1.2-3.4); LYMPH % 35.2 % (20.0-51.0); MEAN CELL VOLUME 84 fl (80.0-100.0); MEAN CORPUSCULAR HEMOGLOBIN 27 pg (27.0-31.0); MEAN CORPUSCULAR HGB CONC 32 g/dl (33.0-37.0); MEAN PLATELET VOLUME 10.7 fl (7.4-10.4); MONO # 0.9 (0.1-0.6); MONO % 9.2 % (1.7-9.3); PLATELET COUNT 240 K/mm3 (130-400); RED BLOOD COUNT 4.45 M/mm3 (4.10-5.30); REDCELL DISTRIBUTION WIDTH-CV 14.2 % (11.5-14.5)
[2019-06-29 21:43] LABS: MUCOUS Present /lpf; PH 5 (5-8); SQUAMOUS EPITHELIAL 0-2 /hpf; URINE APPEARANCE Clear; URINE BACTERIA None Seen /hpf; URINE BILIRUBIN Negative (NEGATIVE); URINE BLOOD Negative (NEGATIVE); URINE COLOR Yellow; URINE GLUCOSE Negative (NEGATIVE); URINE KETONE Negative (NEGATIVE); URINE LEUKOCYTE ESTERASE 1+ (NEGATIVE); URINE NITRATE Negative (NEGATIVE); URINE PROTEIN(semi-quant) Negative (NEGATIVE); URINE UROBILINOGEN Negative (NEGATIVE)
[2019-06-29 22:02] LABS: ALANINE AMINOTRANSFERASE 45 U/L (9-52); ALBUMIN 3.6 gm/dL (3.5-5.0); ALKALINE PHOSPHATASE 84 U/L (50-136); ANION GAP 8 mmol/L (7-16); AST,SGOT 30 U/L (15-37); BILIRUBIN,TOTAL 0.1 mg/dL (0.0-1.0); BLOOD UREA NITROGEN 11 mg/dL (7-17); C-REACTIVE PROTEIN 1.2 mg/dL (0.0-0.9); CALCIUM 8.8 mg/dL (8.4-10.2); CARBON DIOXIDE 26 mmol/L (22-30); CHLORIDE 101 mmol/L (98-107); CREATININE, serum 0.71 (0.52-1.25); GLUCOSE 105 mg/dL (74-106); LIPASE 122 U/L (23-300); POTASSIUM 3.8 mmol/L (3.4-5.0); SODIUM 135 mmol/L (137-145); TOTAL PROTEIN 6.4 gm/dL (6.4-8.2)
[2019-06-29 22:09] LABS: TROPONIN-I < 0.012 ng/mL (0.000-0.035)
[2019-06-29 23:15] VITALS: BP 122/85; PULSE 89
== END 2019-06-29 23:25 | disposition home or self-care (01) ==
LOC: COL.ER 20:54
PROVIDERS: Emergency Medicine
DX: R07.9 Chest pain, unspecified (principal); R51 Headache; G89.29 Other chronic pain; I10 Essential (primary) hypertension; Z79.1 Long term (current) use of non-steroidal anti-inflammatories (NSAID); Z79.82 Long term (current) use of aspirin; Z95.5 Presence of coronary angioplasty implant and graft

== ENCOUNTER 2019-07-02 23:55 | Emergency (ER) | payer OTHER, MEDICARE ==
[~2019-07-02] VITALS: Ht 167.6 cm; Wt 136.4 kg
[2019-07-03 02:09] VITALS: BP 140/62; PULSE 91
== END 2019-07-03 02:09 | disposition home or self-care (01) ==
LOC: COL.ER 23:55
DX: G43.909 Migraine, unspecified, not intractable, without status migrainosus (principal); F32.9 Major depressive disorder, single episode, unspecified; E03.9 Hypothyroidism, unspecified; F41.9 Anxiety disorder, unspecified; Z90.49 Acquired absence of other specified parts of digestive tract; Z90.89 Acquired absence of other organs; Z79.82 Long term (current) use of aspirin
CPT/HCPCS: J1885

== ENCOUNTER 2019-07-21 19:58 | Emergency (ER) | payer OTHER, MEDICARE ==
[~2019-07-21] VITALS: Ht 167.6 cm; Wt 136.4 kg
[2019-07-21 20:11] VITALS: BP 120/72; TEMP 98.5
[2019-07-21 21:11] VITALS: PULSE 90
== END 2019-07-21 21:15 | disposition home or self-care (01) ==
LOC: COL.ER 19:58
DX: R51 Headache (principal); E03.9 Hypothyroidism, unspecified; F31.9 Bipolar disorder, unspecified; I10 Essential (primary) hypertension; Z90.89 Acquired absence of other organs
CPT/HCPCS: J3010

== ENCOUNTER → 2019-07-24 | Outpatient (CLI) | payer OTHER, MEDICARE | LOC: BHSO 14:19 | DX: F25.0 Schizoaffective disorder, bipolar type (principal) | CPT/HCPCS: G0463 ==

== ENCOUNTER → 2019-08-04 | Outpatient (CLI) | payer OTHER, MEDICARE ==
[~2019-08-04] MED LIST changes: +DESONATE TP; +PRINIVIL20 MG PO
== END ==
LOC: BHSO 14:17
DX: F25.0 Schizoaffective disorder, bipolar type (principal)
CPT/HCPCS: G0463

== ENCOUNTER 2019-08-05 15:44 | Emergency (ER) | payer OTHER, MEDICARE ==
[~2019-08-05] VITALS: Ht 167.6 cm; Wt 136.4 kg
[~2019-08-05 15:44] MED LIST changes: -DESONATE TP; -PRINIVIL20 MG PO
[2019-08-05 15:56] VITALS: TEMP 97.8
[2019-08-05] MEDS ORDERED: PRINIVIL20 MG PO (18:21)
[2019-08-05] MEDS ORDERED: SAPHRIS10 MG SL (18:21)
[2019-08-05] MEDS ORDERED: WELLBUTRIN SR200 MG PO (18:24)
[2019-08-05] MEDS ORDERED: PROTONIX 40MG T40 MG PO (18:24)
[2019-08-05 18:25] LABS: BASO # 0.1 (0.0-0.2); BASO % 0.6 % (0.0-2.0); EOS # 0.1 (0.0-0.7); EOS % 0.6 % (0-4.0); GRAN # 9.3 (1.4-6.5); GRAN % 76.8 % (42.2-75.2); HEMATOCRIT 43.2 % (37.0-47.0); HEMOGLOBIN 13.6 g/dl (12.5-16.0); LYMPH # 1.9 (1.2-3.4); LYMPH % 15.6 % (20.0-51.0); MEAN CELL VOLUME 86 fl (80.0-100.0); MEAN CORPUSCULAR HEMOGLOBIN 27 pg (27.0-31.0); MEAN CORPUSCULAR HGB CONC 32 g/dl (33.0-37.0); MONO # 0.7 (0.1-0.6); PLATELET COUNT 305 K/mm3 (130-400); RED BLOOD COUNT 5.01 M/mm3 (4.10-5.30); REDCELL DISTRIBUTION WIDTH-CV 14.1 % (11.5-14.5)
[2019-08-05] MEDS ORDERED: ALDACTONE50 MG PO (18:25)
[2019-08-05] MEDS ORDERED: CRESTOR 10MG10 MG PO (18:26)
[2019-08-05] MEDS ORDERED: DESONATE TP (18:26)
[2019-08-05 18:40] LABS: ALBUMIN 4.3 gm/dL (3.5-5.0); BILIRUBIN,TOTAL 0.1 mg/dL (0.0-1.0); C-REACTIVE PROTEIN 1.2 mg/dL (0.0-0.9); CALCIUM 9.3 mg/dL (8.4-10.2); CREATININE, serum 0.94 (0.52-1.25); POTASSIUM 4.3 mmol/L (3.4-5.0); TOTAL PROTEIN 7.5 gm/dL (6.4-8.2)
[2019-08-05 20:21] LABS: COLLECTION METHOD CLEAN CATCH
[2019-08-05 20:30] LABS: MUCOUS Present /lpf; PH 5 (5-8); SQUAMOUS EPITHELIAL 0-2 /hpf; URINE APPEARANCE Clear; URINE BACTERIA None Seen /hpf; URINE BILIRUBIN Negative (NEGATIVE); URINE BLOOD Negative (NEGATIVE); URINE COLOR Yellow; URINE GLUCOSE Negative (NEGATIVE); URINE KETONE Negative (NEGATIVE); URINE LEUKOCYTE ESTERASE Trace (NEGATIVE); URINE NITRATE Negative (NEGATIVE); URINE PROTEIN(semi-quant) Negative (NEGATIVE); URINE RBC None Seen /hpf; URINE UROBILINOGEN Negative (NEGATIVE)
[2019-08-05 22:38] VITALS: BP 122/45; PULSE 74
== END 2019-08-05 22:45 | disposition home or self-care (01) ==
LOC: COL.ER 15:44
PROVIDERS: Nurse Practitioner
DX: R10.13 Epigastric pain (principal); F31.9 Bipolar disorder, unspecified; F20.9 Schizophrenia, unspecified; Z79.1 Long term (current) use of non-steroidal anti-inflammatories (NSAID); Z90.49 Acquired absence of other specified parts of digestive tract; Z88.8 Allergy status to other drugs, medicaments and biological substances
CPT/HCPCS: J1885; J2405; J3010; J7030

== ENCOUNTER 2019-08-25 00:08 | Emergency (ER) | payer OTHER, MEDICARE ==
[~2019-08-25] VITALS: Ht 167.6 cm; Wt 136.4 kg
[~2019-08-25 00:08] MED LIST changes: +DESONATE TP; +PRINIVIL20 MG PO
[2019-08-25 00:14] VITALS: BP 127/79; TEMP 97.6
[2019-08-25] MEDS ORDERED: FORTAMET500 M1 (00:21)
[2019-08-25 02:57] VITALS: PULSE 92
== END 2019-08-25 02:57 | disposition home or self-care (01) ==
LOC: COL.ER 00:08
DX: G43.909 Migraine, unspecified, not intractable, without status migrainosus (principal); E11.9 Type 2 diabetes mellitus without complications; I10 Essential (primary) hypertension; F25.9 Schizoaffective disorder, unspecified; F32.9 Major depressive disorder, single episode, unspecified; Z79.1 Long term (current) use of non-steroidal anti-inflammatories (NSAID); Z79.82 Long term (current) use of aspirin; Z79.84 Long term (current) use of oral hypoglycemic drugs; Z88.8 Allergy status to other drugs, medicaments and biological substances
CPT/HCPCS: J1200; J2765

== ENCOUNTER 2019-08-30 17:23 | Emergency (ER) | payer OTHER, MEDICARE ==
[~2019-08-30] VITALS: Ht 167.6 cm; Wt 136.4 kg
[~2019-08-30 17:23] MED LIST changes: +FORTAMET500 M1
[2019-08-30 17:28] VITALS: BP 141/82
[2019-08-30] MEDS ORDERED: TURMERIC500 MG PO (18:04)
[2019-08-30] MEDS ORDERED: COLACE 100100 MG/CAP PO (18:07)
[2019-08-30] MEDS ORDERED: TRICOR145 MG PO (18:08)
[2019-08-30 19:55] VITALS: PULSE 92; TEMP 98.2
== END 2019-08-30 20:08 | disposition home or self-care (01) ==
LOC: COL.ER 17:23
DX: J06.9 Acute upper respiratory infection, unspecified (principal); I10 Essential (primary) hypertension; E11.9 Type 2 diabetes mellitus without complications; E03.9 Hypothyroidism, unspecified; E66.9 Obesity, unspecified; E78.5 Hyperlipidemia, unspecified; K58.9 Irritable bowel syndrome, unspecified; Z79.82 Long term (current) use of aspirin; Z79.84 Long term (current) use of oral hypoglycemic drugs
CPT/HCPCS: J2550

== ENCOUNTER → 2019-09-11 | Outpatient (CLI) | payer OTHER, MEDICARE ==
[~2019-09-11] MED LIST changes: +CARAFATE 1GM1 G PO; -FORTAMET500 M1; +FORTAMET500 M1 PO; +LOFIBRA134 MG PO; +NATURAL IRON65 MG; +OMNICEF 300MG300 MG PO; +SENNA-S 50 MG-81 TAB PO; +TURMERIC500 MG PO
== END ==
LOC: BHSO 12:57
DX: F25.8 Other schizoaffective disorders (principal)
CPT/HCPCS: G0463

== ENCOUNTER 2019-09-18 15:34 | Observation (INO) | payer OTHER, MEDICARE ==
[~2019-09-18] VITALS: Ht 167.6 cm; Wt 138.3 kg
[~2019-09-18 15:34] MED LIST changes: -CARAFATE 1GM1 G PO; -LOFIBRA134 MG PO; -NATURAL IRON65 MG; -OMNICEF 300MG300 MG PO; -SENNA-S 50 MG-81 TAB PO
[2019-09-18 17:59] LABS: HEMATOCRIT 44.3 % (37.0-47.0); HEMOGLOBIN 14.2 g/dl (12.5-16.0); MEAN CELL VOLUME 86 fl (80.0-100.0); MEAN CORPUSCULAR HEMOGLOBIN 28 pg (27.0-31.0); MEAN CORPUSCULAR HGB CONC 32 g/dl (33.0-37.0); MEAN PLATELET VOLUME 11.6 fl (7.4-10.4); PLATELET COUNT 348 K/mm3 (130-400); RED BLOOD COUNT 5.16 M/mm3 (4.10-5.30); REDCELL DISTRIBUTION WIDTH-CV 14.7 % (11.5-14.5)
[2019-09-18 18:13] LABS: ALANINE AMINOTRANSFERASE 154 U/L (9-52); ALBUMIN 4.1 gm/dL (3.5-5.0); ALKALINE PHOSPHATASE 100 U/L (50-136); ANION GAP 10 mmol/L (7-16); AST,SGOT 380 U/L (15-37); BILIRUBIN,TOTAL 0.8 mg/dL (0.0-1.0); BLOOD UREA NITROGEN 24 mg/dL (7-17); C-REACTIVE PROTEIN 0.7 mg/dL (0.0-0.9); CALCIUM 8.8 mg/dL (8.4-10.2); CARBON DIOXIDE 23 mmol/L (22-30); CHLORIDE 102 mmol/L (98-107); CREATININE, serum 0.77 (0.52-1.25); GLUCOSE 137 mg/dL (74-106); LIPASE 1752 U/L (23-300); POTASSIUM 4.1 mmol/L (3.4-5.0); SODIUM 135 mmol/L (137-145); TOTAL PROTEIN 7.2 gm/dL (6.4-8.2)
[2019-09-18 18:22] LABS: TROPONIN-I < 0.012 ng/mL (0.000-0.035)
[2019-09-18 18:34] LABS: BAND 9 % (0-10); EOSINOPHIL 2 % (0-4); LYMPHOCYTE 5 % (20.0-51.0); NEUTROPHILS 74 % (42.0-75.2)
[2019-09-18 18:35] LABS: PLATELET ESTIMATE NORMAL (NORMAL)
[2019-09-18 19:28] LABS: COLLECTION METHOD CLEAN CATCH
[2019-09-18 19:47] LABS: PH 6 (5-8); SQUAMOUS EPITHELIAL None Seen /hpf; URINE APPEARANCE Hazy; URINE BACTERIA None Seen /hpf; URINE BILIRUBIN Negative (NEGATIVE); URINE BLOOD Negative (NEGATIVE); URINE COLOR Amber; URINE GLUCOSE Negative (NEGATIVE); URINE KETONE Negative (NEGATIVE); URINE LEUKOCYTE ESTERASE Negative (NEGATIVE); URINE NITRATE Negative (NEGATIVE); URINE PROTEIN(semi-quant) Negative (NEGATIVE); URINE RBC 0-2 /hpf; URINE UROBILINOGEN Negative (NEGATIVE)
[2019-09-18] MEDS ORDERED: OMNICEF 300MG300 MG PO (19:50)
--- NOTE | 2019-09-18 21:43 | NUR ---
Patient arrived to room 350 via w/c. Is alert and oriented x4. Reports pain is increasing. Asking for soup or water, educated on NPO diet.
[2019-09-18] MEDS ORDERED: LOFIBRA134 MG PO (22:08)
[2019-09-18] MEDS ORDERED: SENNA-S 50 MG-81 TAB PO (22:09)
[2019-09-18 22:47] VITALS: BP 119/62; PULSE 102; TEMP 98.1
[2019-09-18 22:49] VITALS: BP 119/62; PULSE 101; TEMP 98.1
--- NOTE | 2019-09-18 23:20 | NUR ---
SPOKE WITH DR REBOLLEDO REGARDING PATIENTS UNRELIEVED PAIN AND HS MEDS. NEW ORDERS RECEIVED.
--- NOTE | 2019-09-18 23:36 | NUR ---
PATIENT REPORTS NO RELIEF WITH IV DILAUDID GIVEN AT 2314. ASKING FOR MORE MEDS AND WANTS HER PAIN TREATED "AGRESSIVELY". 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 SHE ASKS FOR IV ATIVAN AND THIS WAS REPORTED TO DR REBOLLEDO, NO ORDER RECEIVED. EDUCATED PATIENT ON AVAILABLE MEDS AT THIS TIME. SHE AGREES TO TRY TO REST AT THIS TIME.
--- NOTE | 2019-09-19 02:05 | NUR ---
PATIENT RESTING WELL, REPORTS PAIN TO ABDMEN 5/10, DILAUDID 0.5MG IVP AT THIS TIME.
[2019-09-19 03:45] VITALS: BP 100/54; PULSE 92; TEMP 98
--- NOTE | 2019-09-19 05:00 | NUR ---
Patient resting well at this time. IVF infusing without problem.
[2019-09-19 07:45] LABS: BASO % 0.3 % (0.0-2.0); EOS # 0.1 (0.0-0.7); EOS % 0.9 % (0-4.0); GRAN # 4.3 (1.4-6.5); GRAN % 62.3 % (42.2-75.2); HEMATOCRIT 37.1 % (37.0-47.0); LYMPH # 1.5 (1.2-3.4); LYMPH % 22.3 % (20.0-51.0); MEAN CELL VOLUME 87 fl (80.0-100.0); MEAN CORPUSCULAR HGB CONC 32 g/dl (33.0-37.0); MEAN PLATELET VOLUME 11.2 fl (7.4-10.4); MONO % 13.9 % (1.7-9.3); RED BLOOD COUNT 4.27 M/mm3 (4.10-5.30); REDCELL DISTRIBUTION WIDTH-CV 14.9 % (11.5-14.5)
[2019-09-19 07:50] LABS: HEMOGLOBIN 11.7 g/dl (12.5-16.0); MEAN CORPUSCULAR HEMOGLOBIN 27 pg (27.0-31.0); PLATELET COUNT 231 K/mm3 (130-400)
[2019-09-19 08:00] VITALS: BP 113/58; PULSE 89; TEMP 97.7
[2019-09-19 08:07] LABS: CALCIUM 8.2 mg/dL (8.4-10.2); CHOLESTEROL RISK RATIO 1.6; CREATININE, serum 0.67 (0.52-1.25); MAGNESIUM 1.5 mg/dL (1.6-2.3); POTASSIUM 3.9 mmol/L (3.4-5.0)
--- NOTE | 2019-09-19 09:46 | NUR ---
Initial visit; Patient thanked Direct Service Professional for looking in on her, offering prayer and God's blessings. Direct Service Professional will follow up.
--- NOTE | 2019-09-19 10:14 | NUR ---
KIRK met with the patient to discuss discharge plan. The patient reports that at this time, she is still living with her (Alessio). She states that they are in the process of getting a divorce and plan to live together until they sell their house. She reports independence with ADLs and does not have any DME. The patient's PCP is Dr. Gladis Rausch and she receives her medications at [facility]. She reports no difficulties obtaining her meds. The patient's advanced directives are in her chart. Her DPOA-HC is her father, Abebe Gar (ph#[phone]). She states that he lives in [place]. The patient plans to return home with Alsesio upon discharge. No additional needs at this time.
--- NOTE | 2019-09-19 10:15 | NUR ---
Patient c/o headache 02/17. Offered Tylenol, patient requests IV pain medication for the headache. Educated patient on narcotics and headaches. Accepted Tylenol.
[2019-09-19 12:00] VITALS: BP 95/48; PULSE 90; TEMP 98.7
--- NOTE | 2019-09-19 12:57 | NUR ---
Patient alert and oriented, answers questions appropriately. See assessment. C/o generalized pain to head, chest, abdomen, bilateral feet. Patient states all of these areas of pain have been ongoing at home with no real increase in pain since admission. Requests food several times, stating food will help a lot of her pain. Patient is sporadic with her conversation and doesn't answers questions specific before moving on to another topic. No other c/o at this time.
--- NOTE | 2019-09-19 13:10 | NUR ---
Patient requests Doctor be called to request Ativan. Does not c/o anxiety, does not appear anxious. States just wants Ativan because it was given to her in the ED.
--- NOTE | 2019-09-19 15:00 | NUR ---
Dr Dukes notifed of consult.
[2019-09-19 16:00] VITALS: BP 93/61; PULSE 67; TEMP 97.6
[2019-09-19 19:40] VITALS: BP 104/57; PULSE 83
--- NOTE | 2019-09-19 19:47 | NUR ---
Dr Dukes here to see patient.
--- NOTE | 2019-09-19 21:30 | NUR ---
HS MEDS GIVEN AT THIS TIME. PLACED PATIENTS HOME MED IN MED BOX IN MEDICATION ROOM. IVF INFUSING TO LEFT FA WITHOUT REDNESS OR SWELLING. DOES NOT COMPLAIN OF PAIN IN HEAD OR STOMACH AT THIS TIME. WAS ABLE TO TOLERATE LIQUID DIET WITHOUT N/V. REPORTS SMALL STOOL TODAY.
[2019-09-19 23:47] VITALS: BP 107/61; PULSE 76; TEMP 97.9
--- NOTE | 2019-09-20 | NUR ---
PATIENT COMPLAINS OF BACK PAIN, NOT ALLOWING HER TO SLEEP. DILAUDID GIVEN AT THIS TIME.
[2019-09-20 03:36] VITALS: BP 106/58; PULSE 81; TEMP 97.9
--- NOTE | 2019-09-20 04:00 | NUR ---
PATIENT HAS BEEN AWAKE, MAKING REQUESTS FOR A VARIETY OF ORAL LIQUIDS. ADVISED TO STOP INTAKE IN PREPARATION FOR CT ANGIO TODAY.
[2019-09-20 07:22] VITALS: BP 125/55; PULSE 93; TEMP 98.3
[2019-09-20 08:18] LABS: BASO % 0.4 % (0.0-2.0); EOS # 0.1 (0.0-0.7); EOS % 1.6 % (0-4.0); GRAN # 3.3 (1.4-6.5); GRAN % 63.3 % (42.2-75.2); HEMATOCRIT 37.4 % (37.0-47.0); HEMOGLOBIN 11.7 g/dl (12.5-16.0); LYMPH # 1.3 (1.2-3.4); LYMPH % 25.9 % (20.0-51.0); MEAN CELL VOLUME 88 fl (80.0-100.0); MEAN CORPUSCULAR HEMOGLOBIN 28 pg (27.0-31.0); MEAN CORPUSCULAR HGB CONC 31 g/dl (33.0-37.0); MEAN PLATELET VOLUME 11.3 fl (7.4-10.4); MONO # 0.4 (0.1-0.6); MONO % 8.6 % (1.7-9.3); PLATELET COUNT 197 K/mm3 (130-400); RED BLOOD COUNT 4.26 M/mm3 (4.10-5.30); REDCELL DISTRIBUTION WIDTH-CV 15.2 % (11.5-14.5)
[2019-09-20 08:28] LABS: CALCIUM 8.5 mg/dL (8.4-10.2); CREATININE, serum 0.64 (0.52-1.25); POTASSIUM 4.2 mmol/L (3.4-5.0)
[2019-09-20 08:36] LABS: MAGNESIUM 1.7 mg/dL (1.6-2.3)
--- NOTE | 2019-09-20 10:00 | NUR ---
Patient alert and oriented, answers questions appropriately. See assessment. Abdomen soft, non tender, non distended. Bowel sounds active x4 quads. +Flatus. +Bowel movement. Has had numerous requests this a.m, using call light repeatedly for requests such as "I need for you to hand me a tissue." Patient given a.m meds, for which she refused one and wanted it "in a few hours", for which she called for ten minutes later. When medication was not brought in immediately she ambulated to nurses station and demanded medication be given at that moment. Patient also refused CTA and spinal tap several times, going back and forth on getting the test done. Reasons for both test discussed with patient several times, with multiple excuses from patient as to why she shouldn't have them done. Chai Dukes and [place] notified of refusal of tests. Patient inquires as to why she is not receiving Metformin, explained to patient that on admission to hospital, standard practice is to hold Metformin and initiate SSI. Patient does not accept this and asks for the number to [employer] so she can call and make complaints. Patient does not c/o pain or discomfort at this time, but upon exit from room, patient rings call light and states that she has bilateral hip and leg pain. Tylenol given.
--- NOTE | 2019-09-20 10:14 | NUR ---
Patient refused CTA and lumbar puncture, Dr Dukes notified.
--- NOTE | 2019-09-20 11:55 | NUR ---
Discharge instructions reviewed with patient and spouse, verbalized understanding. Discharged via wheelchair to auto/home with spouse at 1155.
== END 2019-09-20 11:55 | disposition home or self-care (01) ==
LOC: COL.ER 15:34 → SURG 19:13 → MEDICAL 09-19 05:56 → SURG 09-20 11:55
PROVIDERS: Emergency Medicine; Hospitalist; Physician Assistant; ADMIT Student in an Organized Health Care Education/Training Program
DX: R07.9 Chest pain, unspecified (principal); E28.2 Polycystic ovarian syndrome; K59.00 Constipation, unspecified; G43.909 Migraine, unspecified, not intractable, without status migrainosus; E83.42 Hypomagnesemia; F32.9 Major depressive disorder, single episode, unspecified; J06.9 Acute upper respiratory infection, unspecified; K21.9 Gastro-esophageal reflux disease without esophagitis; E78.5 Hyperlipidemia, unspecified; E11.9 Type 2 diabetes mellitus without complications; K58.1 Irritable bowel syndrome with constipation; E03.9 Hypothyroidism, unspecified; I10 Essential (primary) hypertension; I95.9 Hypotension, unspecified; F25.9 Schizoaffective disorder, unspecified; Z79.82 Long term (current) use of aspirin; Z79.84 Long term (current) use of oral hypoglycemic drugs; Z90.49 Acquired absence of other specified parts of digestive tract; Z88.8 Allergy status to other drugs, medicaments and biological substances
CPT/HCPCS: G0378; J1170; J1650; J2060; J2405; J3010; J3475; J7030; Q9967

== ENCOUNTER 2019-10-20 22:08 | Emergency (ER) | payer OTHER, MEDICARE ==
[~2019-10-20] VITALS: Ht 167.6 cm; Wt 140.9 kg
[~2019-10-20 22:08] MED LIST changes: +LOFIBRA134 MG PO; +OMNICEF 300MG300 MG PO; +SENNA-S 50 MG-81 TAB PO
[2019-10-20 22:10] VITALS: TEMP 97.4
[2019-10-20 22:56] LABS: BASO # 0.1 (0.0-0.2); BASO % 0.5 % (0.0-2.0); EOS # 0.1 (0.0-0.7); EOS % 1.2 % (0-4.0); GRAN # 5.6 (1.4-6.5); GRAN % 55.6 % (42.2-75.2); HEMATOCRIT 41.2 % (37.0-47.0); LYMPH # 3.4 (1.2-3.4); LYMPH % 34.1 % (20.0-51.0); MEAN CELL VOLUME 88 fl (80.0-100.0); MEAN CORPUSCULAR HEMOGLOBIN 28 pg (27.0-31.0); MEAN CORPUSCULAR HGB CONC 32 g/dl (33.0-37.0); MEAN PLATELET VOLUME 10.9 fl (7.4-10.4); MONO # 0.8 (0.1-0.6); MONO % 8.4 % (1.7-9.3); PLATELET COUNT 306 K/mm3 (130-400); RED BLOOD COUNT 4.69 M/mm3 (4.10-5.30); REDCELL DISTRIBUTION WIDTH-CV 15.4 % (11.5-14.5)
[2019-10-20 23:02] LABS: PROTHROMBIN TIME 12.2 SECONDS (9.7-12.8)
[2019-10-20 23:05] LABS: ALANINE AMINOTRANSFERASE 24 U/L (9-52); ALKALINE PHOSPHATASE 46 U/L (50-136); ANION GAP 8 mmol/L (7-16); AST,SGOT 22 U/L (15-37); BILIRUBIN,TOTAL 0.2 mg/dL (0.0-1.0); BLOOD UREA NITROGEN 16 mg/dL (7-17); CALCIUM 9.2 mg/dL (8.4-10.2); CARBON DIOXIDE 25 mmol/L (22-30); CHLORIDE 107 mmol/L (98-107); CREATININE, serum 0.84 (0.52-1.25); GLUCOSE 116 mg/dL (74-106); PARTIAL THROMBOPLASTIN TIME 30.5 SECONDS (26.0-37.0); SODIUM 140 mmol/L (137-145)
[2019-10-20] MEDS ORDERED: NATURAL IRON65 MG (23:15)
[2019-10-20] MEDS ORDERED: PHENERGAN 25 TA25 MG PO (23:16)
[2019-10-20] MEDS ORDERED: TORADOL 10MG TA10 MG PO (23:17)
[2019-10-20 23:18] LABS: TROPONIN-I < 0.012 ng/mL (0.000-0.035)
[2019-10-21] MEDS ORDERED: NAC600 MG PO (00:02)
[2019-10-21] MEDS ORDERED: ZESTRIL 20MG TA20 MG PO (00:02)
[2019-10-21 00:30] VITALS: BP 101/55; PULSE 73
== END 2019-10-21 00:30 | disposition home or self-care (01) ==
LOC: COL.ER 22:08
PROVIDERS: Family Medicine
DX: R07.89 Other chest pain (principal); K21.9 Gastro-esophageal reflux disease without esophagitis; E11.9 Type 2 diabetes mellitus without complications; I10 Essential (primary) hypertension; E78.5 Hyperlipidemia, unspecified; Z95.9 Presence of cardiac and vascular implant and graft, unspecified; Z90.89 Acquired absence of other organs; Z79.82 Long term (current) use of aspirin; Z79.84 Long term (current) use of oral hypoglycemic drugs
CPT/HCPCS: C9113; J1885

== ENCOUNTER 2019-10-21 18:51 | Emergency (ER) | payer OTHER, MEDICARE ==
[~2019-10-21] VITALS: Ht 167.6 cm; Wt 140.9 kg
[~2019-10-21 18:51] MED LIST changes: +NATURAL IRON65 MG
[2019-10-21 21:55] LABS: BASO # 0.1 (0.0-0.2); BASO % 0.6 % (0.0-2.0); EOS # 0.1 (0.0-0.7); EOS % 1.4 % (0-4.0); GRAN # 4.9 (1.4-6.5); GRAN % 55.3 % (42.2-75.2); HEMATOCRIT 41.4 % (37.0-47.0); LYMPH # 3.1 (1.2-3.4); LYMPH % 35.4 % (20.0-51.0); MEAN CELL VOLUME 88 fl (80.0-100.0); MEAN CORPUSCULAR HEMOGLOBIN 28 pg (27.0-31.0); MEAN CORPUSCULAR HGB CONC 31 g/dl (33.0-37.0); MEAN PLATELET VOLUME 11.2 fl (7.4-10.4); MONO # 0.6 (0.1-0.6); PLATELET COUNT 267 K/mm3 (130-400); REDCELL DISTRIBUTION WIDTH-CV 15.1 % (11.5-14.5)
[2019-10-21 22:08] LABS: ALANINE AMINOTRANSFERASE 31 U/L (9-52); ALBUMIN 4.1 gm/dL (3.5-5.0); ALKALINE PHOSPHATASE 56 U/L (50-136); ANION GAP 8 mmol/L (7-16); AST,SGOT 70 U/L (15-37); BILIRUBIN,TOTAL 0.2 mg/dL (0.0-1.0); BLOOD UREA NITROGEN 23 mg/dL (7-17); C-REACTIVE PROTEIN < 0.5 mg/dL (0.0-0.9); CARBON DIOXIDE 27 mmol/L (22-30); CHLORIDE 105 mmol/L (98-107); CREATININE, serum 0.95 (0.52-1.25); GLUCOSE 101 mg/dL (74-106); LIPASE 278 U/L (23-300); POTASSIUM 4.2 mmol/L (3.4-5.0); SODIUM 140 mmol/L (137-145); TOTAL PROTEIN 7.1 gm/dL (6.4-8.2)
[2019-10-21 22:50] VITALS: BP 122/76; PULSE 74; TEMP 97.9
== END 2019-10-21 22:58 | disposition home or self-care (01) ==
LOC: COL.ER 18:51
PROVIDERS: Physician Assistant
DX: G43.909 Migraine, unspecified, not intractable, without status migrainosus (principal); Z79.82 Long term (current) use of aspirin; Z79.84 Long term (current) use of oral hypoglycemic drugs
CPT/HCPCS: J1170; J1200; J1885; J2550; J7030

== ENCOUNTER → 2019-10-25 | Outpatient (CLI) | payer OTHER, MEDICARE ==
[~2019-10-25] MED LIST changes: +CARAFATE 1GM1 G PO
== END ==
LOC: BHSO 09:40
DX: F25.0 Schizoaffective disorder, bipolar type (principal)
CPT/HCPCS: G0463

== ENCOUNTER 2019-10-29 18:57 | Emergency (ER) | payer OTHER, MEDICARE ==
[~2019-10-29] VITALS: Ht 167.6 cm; Wt 135.5 kg
[~2019-10-29 18:57] MED LIST changes: -CARAFATE 1GM1 G PO
[2019-10-29 19:39] LABS: BASO # 0.1 (0.0-0.2); BASO % 0.6 % (0.0-2.0); EOS # 0.1 (0.0-0.7); EOS % 1.3 % (0-4.0); GRAN # 6.7 (1.4-6.5); GRAN % 60.3 % (42.2-75.2); HEMATOCRIT 42.2 % (37.0-47.0); HEMOGLOBIN 13.5 g/dl (12.5-16.0); LYMPH # 3.3 (1.2-3.4); LYMPH % 30.1 % (20.0-51.0); MEAN CELL VOLUME 88 fl (80.0-100.0); MEAN CORPUSCULAR HEMOGLOBIN 28 pg (27.0-31.0); MEAN CORPUSCULAR HGB CONC 32 g/dl (33.0-37.0); MEAN PLATELET VOLUME 11.6 fl (7.4-10.4); MONO # 0.8 (0.1-0.6); MONO % 7.4 % (1.7-9.3); PLATELET COUNT 300 K/mm3 (130-400); RED BLOOD COUNT 4.82 M/mm3 (4.10-5.30); REDCELL DISTRIBUTION WIDTH-CV 14.5 % (11.5-14.5)
[2019-10-29 19:51] LABS: ALANINE AMINOTRANSFERASE 30 U/L (9-52); ALBUMIN 4.4 gm/dL (3.5-5.0); ALKALINE PHOSPHATASE 57 U/L (50-136); ANION GAP 10 mmol/L (7-16); AST,SGOT 27 U/L (15-37); BILIRUBIN,TOTAL 0.3 mg/dL (0.0-1.0); BLOOD UREA NITROGEN 16 mg/dL (7-17); CALCIUM 9.9 mg/dL (8.4-10.2); CARBON DIOXIDE 23 mmol/L (22-30); CHLORIDE 108 mmol/L (98-107); CREATININE, serum 0.75 (0.52-1.25); GLUCOSE 99 mg/dL (74-106); LIPASE 126 U/L (23-300); POTASSIUM 4.8 mmol/L (3.4-5.0); SODIUM 142 mmol/L (137-145); TOTAL PROTEIN 7.4 gm/dL (6.4-8.2)
[2019-10-29 20:04] LABS: TROPONIN-I < 0.012 ng/mL (0.000-0.035)
[2019-10-29] MEDS ORDERED: PROTONIX 40MG T40 MG PO (20:33)
[2019-10-29 20:38] VITALS: BP 110/82; PULSE 81; TEMP 98.1
[2019-10-30] MEDS ORDERED: CARAFATE 1GM1 G PO (20:29)
== END 2019-10-29 20:49 | disposition home or self-care (01) ==
LOC: COL.ER 18:57
PROVIDERS: Emergency Medicine
DX: R07.89 Other chest pain (principal); E11.9 Type 2 diabetes mellitus without complications; I10 Essential (primary) hypertension; K21.9 Gastro-esophageal reflux disease without esophagitis; E78.5 Hyperlipidemia, unspecified; G43.909 Migraine, unspecified, not intractable, without status migrainosus; E66.9 Obesity, unspecified; Z79.82 Long term (current) use of aspirin; Z79.84 Long term (current) use of oral hypoglycemic drugs; Z90.49 Acquired absence of other specified parts of digestive tract

== ENCOUNTER 2019-10-30 19:46 | Emergency (ER) | payer OTHER, MEDICARE ==
[~2019-10-30] VITALS: Ht 167.6 cm; Wt 135.5 kg
[2019-10-30 19:51] VITALS: BP 128/61; TEMP 97.6
[2019-10-30] MEDS ORDERED: CARAFATE 1GM1 G PO (20:29)
[2019-10-30 23:37] VITALS: PULSE 80
== END 2019-10-30 23:37 | disposition home or self-care (01) ==
LOC: COL.ER 19:46
DX: R51 Headache (principal); E11.9 Type 2 diabetes mellitus without complications; I10 Essential (primary) hypertension; F32.9 Major depressive disorder, single episode, unspecified; E78.5 Hyperlipidemia, unspecified; K21.9 Gastro-esophageal reflux disease without esophagitis; E66.9 Obesity, unspecified; Z98.84 Bariatric surgery status; Z79.82 Long term (current) use of aspirin; Z79.84 Long term (current) use of oral hypoglycemic drugs
CPT/HCPCS: J0780; J1200; J1885; J2550

== ENCOUNTER 2019-11-11 01:01 | Emergency (ER) | payer OTHER, MEDICARE ==
[~2019-11-11] VITALS: Ht 167.6 cm; Wt 131.8 kg
[~2019-11-11 01:01] MED LIST changes: +CARAFATE 1GM1 G PO
[2019-11-11 01:09] VITALS: BP 114/58; TEMP 98.2
[2019-11-11 04:08] VITALS: PULSE 65
== END 2019-11-11 04:08 | disposition home or self-care (01) ==
LOC: COL.ER 01:01
DX: G43.909 Migraine, unspecified, not intractable, without status migrainosus (principal); E11.9 Type 2 diabetes mellitus without complications; I10 Essential (primary) hypertension; F32.9 Major depressive disorder, single episode, unspecified; E78.5 Hyperlipidemia, unspecified; F25.9 Schizoaffective disorder, unspecified; K58.9 Irritable bowel syndrome, unspecified; Z79.82 Long term (current) use of aspirin
CPT/HCPCS: J1885; J2550

== ENCOUNTER 2019-11-19 12:20 | Emergency (ER) | payer OTHER, MEDICARE ==
[~2019-11-19] VITALS: Ht 167.6 cm; Wt 131.8 kg
[2019-11-19 12:26] VITALS: BP 125/60; TEMP 97.2
[2019-11-19 14:48] VITALS: PULSE 77
== END 2019-11-19 14:48 | disposition home or self-care (01) ==
LOC: COL.ER 12:20
DX: G43.909 Migraine, unspecified, not intractable, without status migrainosus (principal); R07.89 Other chest pain; I10 Essential (primary) hypertension; E11.9 Type 2 diabetes mellitus without complications; Z90.89 Acquired absence of other organs; Z79.84 Long term (current) use of oral hypoglycemic drugs; Z79.82 Long term (current) use of aspirin
CPT/HCPCS: J1885; J2550

== ENCOUNTER → 2019-11-22 | Outpatient (CLI) | payer OTHER, MEDICARE | LOC: BHSO 14:18 | DX: F25.0 Schizoaffective disorder, bipolar type (principal) | CPT/HCPCS: G0463 ==

== ENCOUNTER 2019-11-29 00:20 | Emergency (ER) | payer OTHER, MEDICARE ==
[~2019-11-29] VITALS: Ht 167.6 cm; Wt 131.8 kg
[2019-11-29 00:28] VITALS: BP 118/54; TEMP 97.2
[2019-11-29 01:45] VITALS: PULSE 75
== END 2019-11-29 01:45 | disposition home or self-care (01) ==
LOC: COL.ER 00:20
DX: G43.909 Migraine, unspecified, not intractable, without status migrainosus (principal); F25.9 Schizoaffective disorder, unspecified; G47.33 Obstructive sleep apnea (adult) (pediatric); Z79.82 Long term (current) use of aspirin
CPT/HCPCS: J1200; J1885; J2550

== ENCOUNTER 2019-12-02 02:14 | Emergency (ER) | payer OTHER, MEDICARE ==
[~2019-12-02] VITALS: Ht 167.6 cm; Wt 131.8 kg
[2019-12-02 02:19] VITALS: TEMP 97.8
[2019-12-02 02:56] VITALS: BP 137/59; PULSE 75
== END 2019-12-02 02:56 | disposition home or self-care (01) ==
LOC: COL.ER 02:14
DX: G43.909 Migraine, unspecified, not intractable, without status migrainosus (principal); Z79.82 Long term (current) use of aspirin; Z79.84 Long term (current) use of oral hypoglycemic drugs

== ENCOUNTER 2019-12-05 15:56 | Emergency (ER) | payer OTHER, MEDICARE ==
[~2019-12-05] VITALS: Ht 167.6 cm; Wt 136.4 kg
[2019-12-05 16:17] VITALS: BP 117/62; TEMP 98.6
[2019-12-05] MEDS ORDERED: FIORICET 325 MG1 TA1 PO (17:10)
[2019-12-05 17:21] VITALS: PULSE 71
== END 2019-12-05 17:21 | disposition home or self-care (01) ==
LOC: COL.ER 15:56
DX: G43.909 Migraine, unspecified, not intractable, without status migrainosus (principal); Z90.89 Acquired absence of other organs; Z79.82 Long term (current) use of aspirin; Z79.84 Long term (current) use of oral hypoglycemic drugs

== ENCOUNTER 2019-12-12 22:11 | Emergency (ER) | payer OTHER, MEDICARE ==
[~2019-12-12] VITALS: Ht 167.6 cm; Wt 136.4 kg
[2019-12-12 22:19] VITALS: BP 111/78; TEMP 97.9
[2019-12-12] MEDS ORDERED: FIORICET 325 MG1 TA1 PO (23:19)
[2019-12-12 23:27] LABS: STREP SCREEN NEGATIVE
[2019-12-12 23:38] VITALS: PULSE 82
== END 2019-12-12 23:38 | disposition home or self-care (01) ==
LOC: COL.ER 22:11
PROVIDERS: Nurse Practitioner
DX: G43.909 Migraine, unspecified, not intractable, without status migrainosus (principal); F32.9 Major depressive disorder, single episode, unspecified; F41.9 Anxiety disorder, unspecified; E11.9 Type 2 diabetes mellitus without complications; E03.9 Hypothyroidism, unspecified; Z79.82 Long term (current) use of aspirin; Z79.84 Long term (current) use of oral hypoglycemic drugs; Z88.8 Allergy status to other drugs, medicaments and biological substances
CPT/HCPCS: J1200

== ENCOUNTER 2020-01-15 23:29 | Emergency (ER) | payer OTHER, MEDICARE ==
[~2020-01-15 23:29] MED LIST changes: +LATUDA60 MG PO; +MAG-G500 MG PO
== END 2020-01-15 23:35 | disposition left against medical advice (07) ==
LOC: COL.ER 23:29
DX: Z72.89 Other problems related to lifestyle (principal)

== ENCOUNTER 2020-01-24 01:30 | Emergency (ER) | payer OTHER, MEDICARE ==
[~2020-01-24] VITALS: Ht 167.6 cm; Wt 145.0 kg
[2020-01-24 01:33] VITALS: BP 137/64; TEMP 97.7
[2020-01-24 03:03] VITALS: PULSE 70
== END 2020-01-24 03:03 | disposition home or self-care (01) ==
LOC: COL.ER 01:30
DX: R51 Headache (principal); Z79.82 Long term (current) use of aspirin; Z79.84 Long term (current) use of oral hypoglycemic drugs; Z86.69 Personal history of other diseases of the nervous system and sense organs
CPT/HCPCS: J0780

== ENCOUNTER → 2020-02-01 | Outpatient (CLI) | payer OTHER, MEDICARE ==
[~2020-02-01] MED LIST changes: +NURTEC ODT75 MG PO
== END ==
LOC: BHSO 14:17
DX: F25.8 Other schizoaffective disorders (principal)
CPT/HCPCS: G0463

== ENCOUNTER 2020-02-05 01:01 | Emergency (ER) | payer OTHER, MEDICARE ==
[~2020-02-05 01:01] MED LIST changes: -NURTEC ODT75 MG PO
[2020-02-05 01:13] VITALS: TEMP 97.2
[2020-02-05 02:57] VITALS: BP 120/85; PULSE 70
== END 2020-02-05 02:57 | disposition home or self-care (01) ==
LOC: COL.ER 01:01
DX: R51 Headache (principal); Z79.82 Long term (current) use of aspirin; Z79.84 Long term (current) use of oral hypoglycemic drugs
CPT/HCPCS: J0780; J1100; J1200; J1885

== ENCOUNTER 2020-02-08 20:06 | Emergency (ER) | payer OTHER, MEDICARE ==
[~2020-02-08] VITALS: Ht 167.6 cm; Wt 145.5 kg
[2020-02-08 21:39] VITALS: BP 134/70; PULSE 70; TEMP 98
== END 2020-02-08 21:40 | disposition home or self-care (01) ==
LOC: COL.ER 20:06
DX: R51 Headache (principal); Z79.82 Long term (current) use of aspirin; Z79.84 Long term (current) use of oral hypoglycemic drugs
CPT/HCPCS: J1200; J1885; J2550

== ENCOUNTER 2020-02-16 18:30 | Emergency (ER) | payer OTHER, MEDICARE ==
[~2020-02-16] VITALS: Ht 167.6 cm; Wt 140.9 kg
[2020-02-16 18:49] VITALS: TEMP 98.8
[2020-02-17 03:05] VITALS: BP 132/70; PULSE 68
== END 2020-02-17 03:05 | disposition home or self-care (01) ==
LOC: COL.ER 18:30
DX: R51 Headache (principal); Z79.82 Long term (current) use of aspirin
CPT/HCPCS: J0780; J1200; J1790; J1885; J7030

== ENCOUNTER 2020-02-22 20:14 | Emergency (ER) | payer OTHER, MEDICARE ==
[~2020-02-22] VITALS: Ht 167.6 cm; Wt 140.9 kg
[2020-02-22] MEDS ORDERED: NURTEC ODT75 MG PO (20:20)
[2020-02-22 20:21] VITALS: TEMP 97.6
[2020-02-22 21:50] VITALS: BP 118/78; PULSE 82
== END 2020-02-22 21:50 | disposition home or self-care (01) ==
LOC: COL.ER 20:14
DX: G43.909 Migraine, unspecified, not intractable, without status migrainosus (principal); E11.9 Type 2 diabetes mellitus without complications; F25.1 Schizoaffective disorder, depressive type; Z90.89 Acquired absence of other organs; Z90.49 Acquired absence of other specified parts of digestive tract; Z79.82 Long term (current) use of aspirin; Z79.84 Long term (current) use of oral hypoglycemic drugs
CPT/HCPCS: J0780; J1200; J1885; J7030

== ENCOUNTER 2020-02-24 15:39 | Emergency (ER) | payer OTHER, MEDICARE ==
[~2020-02-24] VITALS: Ht 167.6 cm; Wt 140.9 kg
[~2020-02-24 15:39] MED LIST changes: +NURTEC ODT75 MG PO
[2020-02-24 15:45] VITALS: TEMP 98
[2020-02-24] MEDS ORDERED: TYLENOL 500MG500 MG PO (16:06)
[2020-02-24 17:15] VITALS: BP 110/76; PULSE 73
== END 2020-02-24 17:15 | disposition home or self-care (01) ==
LOC: COL.ER 15:39
DX: R51 Headache (principal); E11.9 Type 2 diabetes mellitus without complications; E78.5 Hyperlipidemia, unspecified; E03.9 Hypothyroidism, unspecified; F32.9 Major depressive disorder, single episode, unspecified; Z86.69 Personal history of other diseases of the nervous system and sense organs; Z90.49 Acquired absence of other specified parts of digestive tract; Z90.89 Acquired absence of other organs; Z79.82 Long term (current) use of aspirin; Z79.84 Long term (current) use of oral hypoglycemic drugs
CPT/HCPCS: J0780; J1200; J1885; J7030

== ENCOUNTER 2020-02-25 16:59 | Emergency (ER) | payer OTHER, MEDICARE ==
[~2020-02-25] VITALS: Ht 167.6 cm; Wt 140.9 kg
[2020-02-25 17:06] VITALS: BP 126/60; TEMP 98.8
[2020-02-25 19:15] VITALS: PULSE 81
== END 2020-02-25 19:15 | disposition home or self-care (01) ==
LOC: COL.ER 16:59
DX: R51 Headache (principal); E11.9 Type 2 diabetes mellitus without complications; Z79.84 Long term (current) use of oral hypoglycemic drugs; Z79.82 Long term (current) use of aspirin
CPT/HCPCS: J1885

== ENCOUNTER 2020-02-26 00:50 | Emergency (ER) | payer OTHER, MEDICARE ==
[2020-02-26 04:19] VITALS: BP 122/82; PULSE 80; TEMP 97.2
--- NOTE | 2020-02-26 13:45 | NUR ---
political worker contacted patient and provided mental health information for [facility]. Patient states she will receive money by end of March, from her divorce, and that she does not now, nor will she qualify for medicaid. Patient confirms that she has [employer] primary (that will be ending in March) and Medicare A&B as secondary. Patient state she has applied for a BCBS policy. Patient acknowledges that she does not want to keep coming to ED and will reach out to new therapy practice. Worker spoke with Nichol, [employer], at Dr Rausch's office and confirmed that Dr Rausch and Dr Dukes have exhausted all possible migraine treatment and that they are aware of mutliple ED visits. Nichol states she they allow patient to come to their clinic without appointment and receive similar treatment as given in the ED. Patient states she is currently receiving assistance from [employer] for bills.
== END 2020-02-26 04:20 | disposition home or self-care (01) ==
LOC: COL.ER 00:51
DX: R07.89 Other chest pain (principal); I10 Essential (primary) hypertension; E11.9 Type 2 diabetes mellitus without complications; E03.9 Hypothyroidism, unspecified; F32.9 Major depressive disorder, single episode, unspecified; G43.909 Migraine, unspecified, not intractable, without status migrainosus; Z79.82 Long term (current) use of aspirin; Z79.84 Long term (current) use of oral hypoglycemic drugs

== ENCOUNTER → 2020-03-08 | Outpatient (CLI) | payer OTHER, MEDICARE | LOC: BHSO 09:02 | DX: F25.8 Other schizoaffective disorders (principal) | CPT/HCPCS: G0463 ==

== ENCOUNTER 2020-03-10 20:48 | Emergency (ER) | payer MEDICARE ==
[~2020-03-10] VITALS: Ht 167.6 cm; Wt 140.9 kg
[2020-03-10 20:57] VITALS: BP 109/72; PULSE 90; TEMP 98.5
[2020-03-11] MEDS ORDERED: FIORICET 325 MG1 TA1 PO (00:51)
== END 2020-03-10 21:17 | disposition left against medical advice (07) ==
LOC: COL.ER 20:48
DX: R51 Headache (principal); Z79.82 Long term (current) use of aspirin; Z79.891 Long term (current) use of opiate analgesic

== ENCOUNTER 2020-03-10 22:05 | Emergency (ER) | payer MEDICARE ==
[~2020-03-10] VITALS: Ht 167.6 cm; Wt 140.9 kg
[2020-03-10 23:10] VITALS: BP 106/71; TEMP 97.9
[2020-03-11] MEDS ORDERED: FIORICET 325 MG1 TA1 PO (00:51)
[2020-03-11 01:04] VITALS: PULSE 78
== END 2020-03-11 01:09 | disposition home or self-care (01) ==
LOC: COL.ER 22:05
DX: G43.909 Migraine, unspecified, not intractable, without status migrainosus (principal); E11.9 Type 2 diabetes mellitus without complications; F32.9 Major depressive disorder, single episode, unspecified; I10 Essential (primary) hypertension; F25.9 Schizoaffective disorder, unspecified; E03.9 Hypothyroidism, unspecified; Z79.84 Long term (current) use of oral hypoglycemic drugs; Z79.82 Long term (current) use of aspirin
CPT/HCPCS: J1885

== ENCOUNTER 2020-03-17 11:45 | Emergency (ER) | payer MEDICARE ==
[~2020-03-17] VITALS: Ht 167.6 cm; Wt 145.0 kg
[2020-03-17 11:52] VITALS: TEMP 97.2
[2020-03-17] MEDS ORDERED: FLEXERIL 1010 MG/TAB PO (13:02)
[2020-03-17] MEDS ORDERED: LIDODERM 5% PATC1 EA TP (13:03)
[2020-03-17 13:57] LABS: BASO # 0.1 (0.0-0.2); BASO % 0.7 % (0.0-2.0); EOS # 0.1 (0.0-0.7); EOS % 1.7 % (0-4.0); GRAN # 4.9 (1.4-6.5); GRAN % 60.5 % (42.2-75.2); HEMATOCRIT 41.2 % (37.0-47.0); HEMOGLOBIN 13.3 g/dl (12.5-16.0); LYMPH # 2.4 (1.2-3.4); MEAN CELL VOLUME 90 fl (80.0-100.0); MEAN CORPUSCULAR HEMOGLOBIN 29 pg (27.0-31.0); MEAN CORPUSCULAR HGB CONC 32 g/dl (33.0-37.0); MEAN PLATELET VOLUME 11.5 fl (7.4-10.4); MONO # 0.6 (0.1-0.6); MONO % 7.7 % (1.7-9.3); PLATELET COUNT 252 K/mm3 (130-400); RED BLOOD COUNT 4.59 M/mm3 (4.10-5.30); REDCELL DISTRIBUTION WIDTH-CV 12.9 % (11.5-14.5)
[2020-03-17 14:04] LABS: C-REACTIVE PROTEIN 0.5 mg/dL (0.0-0.9); CALCIUM 9.7 mg/dL (8.4-10.2); CREATININE, serum 0.64 (0.52-1.25)
[2020-03-17 14:26] VITALS: BP 100/61; PULSE 78
== END 2020-03-17 14:34 | disposition home or self-care (01) ==
LOC: COL.ER 11:45
PROVIDERS: Emergency Medicine
DX: M54.5 Low back pain (principal); E11.9 Type 2 diabetes mellitus without complications; Z79.84 Long term (current) use of oral hypoglycemic drugs; Z79.82 Long term (current) use of aspirin
CPT/HCPCS: J8540

== ENCOUNTER 2020-03-26 01:42 | Emergency (ER) | payer OTHER ==
[~2020-03-26] VITALS: Ht 167.6 cm; Wt 145.0 kg
[~2020-03-26 01:42] MED LIST changes: +FLEXERIL 1010 MG/TAB PO; +LIDODERM 5% PATC1 EA TP
[2020-03-26 02:23] VITALS: TEMP 97.7
[2020-03-26] MEDS ORDERED: LIDODERM 5% PATC1 EA TP (03:28)
[2020-03-26] MEDS ORDERED: FLEXERIL 1010 MG/TAB PO (03:28)
[2020-03-26 04:21] VITALS: BP 113/64; PULSE 78
== END 2020-03-26 04:25 | disposition home or self-care (01) ==
LOC: COL.ER 01:42
DX: R51 Headache (principal); E11.9 Type 2 diabetes mellitus without complications; I10 Essential (primary) hypertension; E03.9 Hypothyroidism, unspecified; F32.9 Major depressive disorder, single episode, unspecified; K21.9 Gastro-esophageal reflux disease without esophagitis; Z79.82 Long term (current) use of aspirin; Z79.84 Long term (current) use of oral hypoglycemic drugs; Z79.890 Hormone replacement therapy; Z79.891 Long term (current) use of opiate analgesic; Z98.84 Bariatric surgery status
CPT/HCPCS: J0780; J1200; J1885

== ENCOUNTER 2020-04-02 22:29 | Emergency (ER) | payer MEDICARE, BC ==
[~2020-04-02] VITALS: Ht 167.6 cm; Wt 145.0 kg
[2020-04-02 22:34] VITALS: BP 125/82; TEMP 98.6
[2020-04-03 00:09] VITALS: PULSE 78
== END 2020-04-03 00:15 | disposition home or self-care (01) ==
LOC: COL.ER 22:29
DX: G43.909 Migraine, unspecified, not intractable, without status migrainosus (principal); E11.9 Type 2 diabetes mellitus without complications; I10 Essential (primary) hypertension; E03.9 Hypothyroidism, unspecified; F32.9 Major depressive disorder, single episode, unspecified; F25.1 Schizoaffective disorder, depressive type; Z79.82 Long term (current) use of aspirin; Z79.84 Long term (current) use of oral hypoglycemic drugs; Z79.890 Hormone replacement therapy; Z79.891 Long term (current) use of opiate analgesic; Z88.6 Allergy status to analgesic agent
CPT/HCPCS: J1885

== ENCOUNTER → 2020-04-11 | Outpatient (CLI) | payer MEDICARE, BC | LOC: BHSO 10:14 | DX: F25.8 Other schizoaffective disorders (principal) | CPT/HCPCS: G0463 ==

== ENCOUNTER 2020-04-25 00:03 | Emergency (ER) | payer MEDICARE, BC ==
[~2020-04-25] VITALS: Ht 167.6 cm; Wt 145.0 kg
[2020-04-25 01:11] LABS: BASO # 0.1 (0.0-0.2); BASO % 0.7 % (0.0-2.0); EOS # 0.2 (0.0-0.7); EOS % 1.9 % (0-4.0); GRAN # 5.4 (1.4-6.5); GRAN % 60.7 % (42.2-75.2); HEMATOCRIT 36.9 % (37.0-47.0); HEMOGLOBIN 11.9 g/dl (12.5-16.0); LYMPH # 2.5 (1.2-3.4); LYMPH % 27.9 % (20.0-51.0); MEAN CELL VOLUME 89 fl (80.0-100.0); MEAN CORPUSCULAR HEMOGLOBIN 29 pg (27.0-31.0); MEAN CORPUSCULAR HGB CONC 32 g/dl (33.0-37.0); MEAN PLATELET VOLUME 10.7 fl (7.4-10.4); MONO # 0.8 (0.1-0.6); MONO % 8.5 % (1.7-9.3); PLATELET COUNT 236 K/mm3 (130-400); RED BLOOD COUNT 4.15 M/mm3 (4.10-5.30); REDCELL DISTRIBUTION WIDTH-CV 12.8 % (11.5-14.5)
[2020-04-25 02:53] VITALS: BP 120/74; PULSE 82; TEMP 98.7
== END 2020-04-25 03:20 | disposition home or self-care (01) ==
LOC: COL.ER 00:03
PROVIDERS: Physician Assistant
DX: R60.0 Localized edema (principal); R79.1 Abnormal coagulation profile; E11.9 Type 2 diabetes mellitus without complications; I10 Essential (primary) hypertension; F32.9 Major depressive disorder, single episode, unspecified; G43.909 Migraine, unspecified, not intractable, without status migrainosus; F25.9 Schizoaffective disorder, unspecified; Z90.89 Acquired absence of other organs; Z79.82 Long term (current) use of aspirin; Z79.84 Long term (current) use of oral hypoglycemic drugs
CPT/HCPCS: J1650

== ENCOUNTER 2020-06-01 00:06 | Emergency (ER) | payer MEDICARE, BC ==
[~2020-06-01] VITALS: Ht 167.6 cm; Wt 150.0 kg
[2020-06-01 00:10] VITALS: BP 102/56; TEMP 97
[2020-06-01 01:08] VITALS: PULSE 77
== END 2020-06-01 01:08 | disposition home or self-care (01) ==
LOC: COL.ER 00:06
DX: M25.522 Pain in left elbow (principal); M79.622 Pain in left upper arm; E11.9 Type 2 diabetes mellitus without complications; F32.9 Major depressive disorder, single episode, unspecified; G43.909 Migraine, unspecified, not intractable, without status migrainosus; F25.9 Schizoaffective disorder, unspecified; Z79.82 Long term (current) use of aspirin; Z79.84 Long term (current) use of oral hypoglycemic drugs; Z79.890 Hormone replacement therapy
CPT/HCPCS: J1885

== ENCOUNTER 2020-06-06 00:37 | Emergency (ER) | payer MEDICARE, BC ==
[~2020-06-06] VITALS: Ht 167.6 cm; Wt 149.5 kg
[2020-06-06 02:25] VITALS: BP 102/72; PULSE 75; TEMP 97.6
== END 2020-06-06 02:44 | disposition home or self-care (01) ==
LOC: COL.ER 00:37
DX: S50.02XA Contusion of left elbow, initial encounter (principal); F32.9 Major depressive disorder, single episode, unspecified; I10 Essential (primary) hypertension; E11.9 Type 2 diabetes mellitus without complications; F25.9 Schizoaffective disorder, unspecified; G43.909 Migraine, unspecified, not intractable, without status migrainosus; Z79.82 Long term (current) use of aspirin; Z79.84 Long term (current) use of oral hypoglycemic drugs; Z88.8 Allergy status to other drugs, medicaments and biological substances; W01.0XXA Fall on same level from slipping, tripping and stumbling without subsequent striking against object, initial encounter; Y92.410 Unspecified street and highway as the place of occurrence of the external cause

== ENCOUNTER → 2020-06-07 | Outpatient (CLI) | payer MEDICARE, BC | LOC: BHSO 10:25 | DX: F25.8 Other schizoaffective disorders (principal) | CPT/HCPCS: G0463 ==

== ENCOUNTER 2020-06-27 00:55 | Emergency (ER) | payer MEDICARE, BC ==
[~2020-06-27] VITALS: Ht 167.6 cm; Wt 149.5 kg
[2020-06-27 01:10] VITALS: BP 104/71; PULSE 88; TEMP 98.4
== END 2020-06-27 02:35 | disposition left against medical advice (07) ==
LOC: COL.ER 00:55
DX: R53.81 Other malaise (principal)

== ENCOUNTER 2020-07-04 22:58 | Emergency (ER) | payer MEDICARE, BC ==
[~2020-07-04] VITALS: Ht 167.6 cm; Wt 149.5 kg
[2020-07-04 23:05] VITALS: TEMP 98
[2020-07-05] MEDS ORDERED: TORADOL 10MG TA10 MG PO (00:24)
[2020-07-05 00:26] VITALS: BP 122/86; PULSE 79
== END 2020-07-05 00:26 | disposition home or self-care (01) ==
LOC: COL.ER 22:58
DX: R51 Headache (principal); I10 Essential (primary) hypertension; E78.5 Hyperlipidemia, unspecified; Z90.49 Acquired absence of other specified parts of digestive tract; Z88.8 Allergy status to other drugs, medicaments and biological substances; Z79.82 Long term (current) use of aspirin; Z79.84 Long term (current) use of oral hypoglycemic drugs
CPT/HCPCS: J1885; J2550

== ENCOUNTER 2020-07-12 18:10 | Emergency (ER) | payer MEDICARE, BC ==
[~2020-07-12] VITALS: Ht 167.6 cm; Wt 149.5 kg
[2020-07-12] MEDS ORDERED: MEDROL 4MG DOSPA4 MG PO (21:28)
[2020-07-12 21:45] VITALS: BP 132/74; PULSE 72; TEMP 98.5
== END 2020-07-12 21:50 | disposition home or self-care (01) ==
LOC: COL.ER 18:10
DX: R06.00 Dyspnea, unspecified (principal); Z20.828 Contact with and (suspected) exposure to other viral communicable diseases; Z88.8 Allergy status to other drugs, medicaments and biological substances; Z79.82 Long term (current) use of aspirin; Z79.84 Long term (current) use of oral hypoglycemic drugs
CPT/HCPCS: J7512

== ENCOUNTER 2020-08-01 01:53 | Emergency (ER) | payer MEDICARE, BC ==
[~2020-08-01] VITALS: Ht 167.6 cm; Wt 147.3 kg
[~2020-08-01 01:53] MED LIST changes: +MEDROL 4MG DOSPA4 MG PO
[2020-08-01 01:57] VITALS: TEMP 97
[2020-08-01 03:09] VITALS: BP 107/73; PULSE 83
== END 2020-08-01 03:09 | disposition home or self-care (01) ==
LOC: COL.ER 01:53
DX: R10.12 Left upper quadrant pain (principal); E11.9 Type 2 diabetes mellitus without complications; F32.9 Major depressive disorder, single episode, unspecified; Z90.49 Acquired absence of other specified parts of digestive tract; Z90.89 Acquired absence of other organs; Z98.84 Bariatric surgery status; Z88.8 Allergy status to other drugs, medicaments and biological substances; Z79.82 Long term (current) use of aspirin; Z79.84 Long term (current) use of oral hypoglycemic drugs

== ENCOUNTER → 2020-08-07 | Outpatient (CLI) | payer MEDICARE, BC | LOC: BHSO 14:31 | DX: F25.0 Schizoaffective disorder, bipolar type (principal) | CPT/HCPCS: G0463 ==

== ENCOUNTER 2020-08-10 16:52 | Emergency (ER) | payer MEDICARE, BC ==
[~2020-08-10] VITALS: Ht 167.6 cm; Wt 147.3 kg
[2020-08-10 17:01] VITALS: BP 103/69; TEMP 97
[2020-08-10 18:49] VITALS: PULSE 65
== END 2020-08-10 18:49 | disposition home or self-care (01) ==
LOC: COL.ER 16:52
DX: R51.9 Headache, unspecified (principal); F32.9 Major depressive disorder, single episode, unspecified; E11.9 Type 2 diabetes mellitus without complications; M19.90 Unspecified osteoarthritis, unspecified site; Z90.49 Acquired absence of other specified parts of digestive tract; Z90.89 Acquired absence of other organs; Z98.84 Bariatric surgery status; Z79.82 Long term (current) use of aspirin; Z79.84 Long term (current) use of oral hypoglycemic drugs
CPT/HCPCS: J1885; J2550

== ENCOUNTER 2020-09-16 01:14 | Emergency (ER) | payer MEDICARE, BC ==
[~2020-09-16] VITALS: Ht 167.6 cm; Wt 150.0 kg
[2020-09-16 01:25] VITALS: TEMP 97.9
[2020-09-16 02:43] VITALS: BP 105/55; PULSE 80
== END 2020-09-16 02:45 | disposition home or self-care (01) ==
LOC: COL.ER 01:14
DX: G43.909 Migraine, unspecified, not intractable, without status migrainosus (principal); F32.9 Major depressive disorder, single episode, unspecified; K21.9 Gastro-esophageal reflux disease without esophagitis; E78.5 Hyperlipidemia, unspecified; E11.9 Type 2 diabetes mellitus without complications; E03.9 Hypothyroidism, unspecified; I10 Essential (primary) hypertension; Z88.8 Allergy status to other drugs, medicaments and biological substances; Z79.890 Hormone replacement therapy; Z79.82 Long term (current) use of aspirin; Z79.84 Long term (current) use of oral hypoglycemic drugs
CPT/HCPCS: J1885; J2550

== ENCOUNTER → 2020-10-29 | Outpatient (CLI) | payer MEDICARE | LOC: MHCPAIN 13:04 | DX: M47.812 Spondylosis without myelopathy or radiculopathy, cervical region (principal); M54.2 Cervicalgia; R51.9 Headache, unspecified; G89.29 Other chronic pain | CPT/HCPCS: G0463 ==

== ENCOUNTER 2020-11-14 20:42 | Emergency (ER) | payer MEDICARE ==
[~2020-11-14] VITALS: Ht 167.6 cm; Wt 150.0 kg
[2020-11-14 20:57] VITALS: TEMP 97
[2020-11-15 00:01] LABS: BASO # 0.1 (0.0-0.2); BASO % 0.6 % (0.0-2.0); EOS # 0.2 (0.0-0.7); EOS % 2.1 % (0-4.0); HEMATOCRIT 38.9 % (37.0-47.0); HEMOGLOBIN 12.6 g/dl (12.5-16.0); LYMPH # 3.1 (1.2-3.4); LYMPH % 38.8 % (20.0-51.0); MEAN CELL VOLUME 89 fl (80.0-100.0); MEAN CORPUSCULAR HEMOGLOBIN 29 pg (27.0-31.0); MEAN CORPUSCULAR HGB CONC 32 g/dl (33.0-37.0); MEAN PLATELET VOLUME 11.4 fl (7.4-10.4); MONO # 0.6 (0.1-0.6); PLATELET COUNT 176 K/mm3 (130-400); RED BLOOD COUNT 4.38 M/mm3 (4.10-5.30); REDCELL DISTRIBUTION WIDTH-CV 13.1 % (11.5-14.5)
[2020-11-15 00:05] LABS: ALBUMIN 3.7 gm/dL (3.5-5.0); BILIRUBIN,TOTAL 0.3 mg/dL (0.0-1.0); CALCIUM 9.3 mg/dL (8.4-10.2); CREATININE, serum 0.59 (0.52-1.25); TOTAL PROTEIN 6.4 gm/dL (6.4-8.2)
[2020-11-15 00:39] LABS: TROPONIN-I < 0.012 ng/mL (0.000-0.035)
[2020-11-15 02:15] VITALS: BP 123/58; PULSE 82
== END 2020-11-15 02:15 | disposition home or self-care (01) ==
LOC: COL.ER 20:42
PROVIDERS: Nurse Practitioner Primary Care
DX: G43.909 Migraine, unspecified, not intractable, without status migrainosus (principal); R06.00 Dyspnea, unspecified; I10 Essential (primary) hypertension; E11.9 Type 2 diabetes mellitus without complications; K21.9 Gastro-esophageal reflux disease without esophagitis; E03.9 Hypothyroidism, unspecified; E78.5 Hyperlipidemia, unspecified; F32.9 Major depressive disorder, single episode, unspecified; Z98.84 Bariatric surgery status; Z90.49 Acquired absence of other specified parts of digestive tract; Z20.822 Contact with and (suspected) exposure to COVID-19; Z88.8 Allergy status to other drugs, medicaments and biological substances; Z90.89 Acquired absence of other organs; Z79.82 Long term (current) use of aspirin; Z79.890 Hormone replacement therapy; Z79.84 Long term (current) use of oral hypoglycemic drugs
CPT/HCPCS: J1885

== ENCOUNTER 2020-12-06 11:53 | Emergency (ER) | payer MEDICARE ==
[~2020-12-06] VITALS: Ht 167.6 cm; Wt 150.0 kg
[2020-12-06 11:59] VITALS: BP 129/82; TEMP 98.3
[2020-12-06 14:23] LABS: BASO % 0.4 % (0.0-2.0); EOS # 0.1 (0.0-0.7); EOS % 1.5 % (0-4.0); GRAN # 3.8 (1.4-6.5); GRAN % 56.1 % (42.2-75.2); HEMATOCRIT 41.6 % (37.0-47.0); HEMOGLOBIN 13.1 g/dl (12.5-16.0); LYMPH # 2.3 (1.2-3.4); LYMPH % 33.5 % (20.0-51.0); MEAN CELL VOLUME 92 fl (80.0-100.0); MEAN CORPUSCULAR HEMOGLOBIN 29 pg (27.0-31.0); MEAN CORPUSCULAR HGB CONC 32 g/dl (33.0-37.0); MEAN PLATELET VOLUME 11.2 fl (7.4-10.4); MONO # 0.6 (0.1-0.6); MONO % 8.2 % (1.7-9.3); PLATELET COUNT 230 K/mm3 (130-400); RED BLOOD COUNT 4.51 M/mm3 (4.10-5.30); REDCELL DISTRIBUTION WIDTH-CV 13.2 % (11.5-14.5)
[2020-12-06 14:34] LABS: ALANINE AMINOTRANSFERASE 29 U/L (4-34); ALBUMIN 4.1 gm/dL (3.5-5.0); ALKALINE PHOSPHATASE 48 U/L (50-136); ANION GAP 6 mmol/L (7-16); AST,SGOT 30 U/L (15-37); BILIRUBIN,TOTAL 0.2 mg/dL (0.0-1.0); BLOOD UREA NITROGEN 12 mg/dL (7-17); CALCIUM 9.5 mg/dL (8.4-10.2); CARBON DIOXIDE 32 mmol/L (22-30); CHLORIDE 104 mmol/L (98-107); CREATININE, serum 0.69 (0.52-1.25); GLUCOSE 99 mg/dL (74-106); POTASSIUM 3.7 mmol/L (3.4-5.0); SODIUM 142 mmol/L (137-145)
[2020-12-06 14:35] LABS: ACETAMINOPHEN < 10 ug/mL (10-30); ALCOHOL(ethanol),MEDICAL < 10 mg/dL; SALICYLATE < 1.0 mg/dL
[2020-12-06 14:44] LABS: COLLECTION METHOD CLEAN CATCH
[2020-12-06 14:51] LABS: PH 7 (5-8); SQUAMOUS EPITHELIAL None Seen /hpf; URINE APPEARANCE Clear; URINE BACTERIA None Seen /hpf; URINE BILIRUBIN Negative (NEGATIVE); URINE BLOOD Negative (NEGATIVE); URINE COLOR Yellow; URINE GLUCOSE Negative (NEGATIVE); URINE KETONE Negative (NEGATIVE); URINE LEUKOCYTE ESTERASE Negative (NEGATIVE); URINE NITRATE Negative (NEGATIVE); URINE PROTEIN(semi-quant) Negative (NEGATIVE); URINE RBC 0-2 /hpf; URINE UROBILINOGEN Negative (NEGATIVE)
[2020-12-06 15:47] LABS: TRICYCLIC ANTIDEPRESS URINE NEGATIVE
[2020-12-06 18:31] VITALS: PULSE 104
== END 2020-12-06 18:34 | disposition home or self-care (01) ==
LOC: COL.ER 11:53
PROVIDERS: Nurse Practitioner
DX: G43.909 Migraine, unspecified, not intractable, without status migrainosus (principal); R44.0 Auditory hallucinations; Z98.84 Bariatric surgery status; Z90.49 Acquired absence of other specified parts of digestive tract; Z90.89 Acquired absence of other organs; Z88.8 Allergy status to other drugs, medicaments and biological substances; Z79.82 Long term (current) use of aspirin; Z79.84 Long term (current) use of oral hypoglycemic drugs; Z79.890 Hormone replacement therapy

== ENCOUNTER 2020-12-10 00:30 | Emergency (ER) | payer MEDICARE ==
[~2020-12-10] VITALS: Ht 167.6 cm; Wt 150.0 kg
[2020-12-10 00:45] VITALS: BP 117/87; PULSE 98; TEMP 98.7
[2020-12-10 03:10] LABS: COLLECTION METHOD CLEAN CATCH
[2020-12-10 03:19] LABS: PH 5 (5-8); SQUAMOUS EPITHELIAL 0-2 /hpf; URINE APPEARANCE Clear; URINE BACTERIA Rare /hpf; URINE BILIRUBIN Negative (NEGATIVE); URINE BLOOD Negative (NEGATIVE); URINE COLOR Yellow; URINE GLUCOSE Negative (NEGATIVE); URINE KETONE Negative (NEGATIVE); URINE LEUKOCYTE ESTERASE Negative (NEGATIVE); URINE NITRATE Negative (NEGATIVE); URINE PROTEIN(semi-quant) Negative (NEGATIVE); URINE RBC 0-2 /hpf; URINE UROBILINOGEN Negative (NEGATIVE); URINE WBC 0-2 /hpf
[2020-12-10] MEDS ORDERED: ROBAXIN 50500 MG/TAB PO (03:29)
[2020-12-10] MEDS ORDERED: LIDODERM 5% PATC1 EA TP (03:35)
== END 2020-12-10 03:50 | disposition home or self-care (01) ==
LOC: COL.ER 00:30
PROVIDERS: Emergency Medicine
DX: M54.42 Lumbago with sciatica, left side (principal); M54.41 Lumbago with sciatica, right side; I10 Essential (primary) hypertension; E11.9 Type 2 diabetes mellitus without complications; Z88.8 Allergy status to other drugs, medicaments and biological substances; Z98.84 Bariatric surgery status; Z79.84 Long term (current) use of oral hypoglycemic drugs
CPT/HCPCS: J1885; J8540

== ENCOUNTER 2021-05-06 22:18 | Emergency (ER) | payer MEDICARE ==
[~2021-05-06] VITALS: Ht 167.6 cm; Wt 150.0 kg
[~2021-05-06 22:18] MED LIST changes: +ROBAXIN 50500 MG/TAB PO
[2021-05-06 22:43] VITALS: BP 120/71; PULSE 103; TEMP 98.1
== END 2021-05-07 00:48 | disposition left against medical advice (07) ==
LOC: COL.ER 22:18
DX: R51.9 Headache, unspecified (principal)

== ENCOUNTER 2021-05-07 21:38 | Emergency (ER) | payer MEDICARE ==
[~2021-05-07] VITALS: Ht 167.6 cm; Wt 150.0 kg
[2021-05-07 23:59] VITALS: BP 111/74; PULSE 90; TEMP 98.3
== END 2021-05-07 23:59 | disposition home or self-care (01) ==
LOC: COL.ER 21:38
DX: F41.1 Generalized anxiety disorder (principal); G43.709 Chronic migraine without aura, not intractable, without status migrainosus; G89.29 Other chronic pain; E11.40 Type 2 diabetes mellitus with diabetic neuropathy, unspecified; F25.9 Schizoaffective disorder, unspecified; Z79.84 Long term (current) use of oral hypoglycemic drugs; Z79.899 Other long term (current) drug therapy
CPT/HCPCS: J3486

== ENCOUNTER 2021-05-23 03:52 | Emergency (ER) | payer MEDICARE ==
[~2021-05-23] VITALS: Ht 167.6 cm; Wt 150.0 kg
[2021-05-23] MEDS ORDERED: FIORICET 325 MG1 TA1 PO (05:29)
[2021-05-23 05:31] VITALS: BP 131/73; PULSE 71; TEMP 97.8
== END 2021-05-23 05:33 | disposition home or self-care (01) ==
LOC: COL.ER 03:52
DX: G43.909 Migraine, unspecified, not intractable, without status migrainosus (principal); I10 Essential (primary) hypertension; F25.9 Schizoaffective disorder, unspecified; F32.9 Major depressive disorder, single episode, unspecified; E78.5 Hyperlipidemia, unspecified; E11.9 Type 2 diabetes mellitus without complications; E03.9 Hypothyroidism, unspecified; K21.9 Gastro-esophageal reflux disease without esophagitis; Z79.890 Hormone replacement therapy; Z79.899 Other long term (current) drug therapy; Z79.84 Long term (current) use of oral hypoglycemic drugs
CPT/HCPCS: J1885; J2550

== ENCOUNTER 2021-06-10 22:00 | Emergency (ER) | payer MEDICARE ==
[~2021-06-10] VITALS: Ht 167.6 cm; Wt 104.5 kg
[2021-06-11 00:15] VITALS: BP 136/83; PULSE 67; TEMP 98.7
== END 2021-06-11 00:15 | disposition home or self-care (01) ==
LOC: COL.ER 22:00
DX: G43.909 Migraine, unspecified, not intractable, without status migrainosus (principal); Z88.8 Allergy status to other drugs, medicaments and biological substances; Z79.899 Other long term (current) drug therapy
CPT/HCPCS: J1200; J1885; J2405

== ENCOUNTER 2021-07-28 21:24 | Emergency (ER) | payer MEDICARE ==
[2021-07-29] VITALS: TEMP 97.5
[2021-07-29 00:49] LABS: BASO # 0.1 K/mm3 (0.0-0.2); BASO % 0.5 % (0.0-2.0); EOS # 0.2 K/mm3 (0.0-0.7); EOS % 1.6 % (0-4.0); GRAN # 6.1 K/mm3 (1.4-6.5); HEMATOCRIT 41.1 % (37.0-47.0); HEMOGLOBIN 13.1 g/dl (12.5-16.0); LYMPH # 3.6 K/mm3 (1.2-3.4); LYMPH % 33.2 % (20.0-51.0); MEAN CELL VOLUME 90 fl (80.0-100.0); MEAN CORPUSCULAR HEMOGLOBIN 29 pg (27.0-31.0); MEAN CORPUSCULAR HGB CONC 32 g/dl (33.0-37.0); MEAN PLATELET VOLUME 11.7 fl (7.4-10.4); MONO # 0.9 K/mm3 (0.1-0.6); MONO % 8.2 % (1.7-9.3); PLATELET COUNT 250 K/mm3 (130-400); RED BLOOD COUNT 4.58 M/mm3 (4.10-5.30); REDCELL DISTRIBUTION WIDTH-CV 13.2 % (11.5-14.5)
[2021-07-29 01:10] LABS: ALBUMIN 3.8 gm/dL (3.5-5.0); BILIRUBIN,TOTAL 0.2 mg/dL (0.2-1.2); CALCIUM 9.5 mg/dL (8.4-10.2); CREATININE, serum 0.76 mg/dL (0.57-1.11); POTASSIUM 3.8 mmol/L (3.5-4.5); TOTAL PROTEIN 7.2 gm/dL (6.2-8.1)
[2021-07-29 01:29] LABS: TSH w REFLEX 5.283 uIU/mL (0.350-4.940)
[2021-07-29 03:01] VITALS: BP 120/84; PULSE 76
== END 2021-07-29 03:01 | disposition home or self-care (01) ==
LOC: COL.ER 21:24
PROVIDERS: Emergency Medicine
DX: G43.909 Migraine, unspecified, not intractable, without status migrainosus (principal); F32.A Depression, unspecified; K21.9 Gastro-esophageal reflux disease without esophagitis; E78.5 Hyperlipidemia, unspecified; E11.9 Type 2 diabetes mellitus without complications; E03.9 Hypothyroidism, unspecified; I10 Essential (primary) hypertension; F25.9 Schizoaffective disorder, unspecified; Z88.8 Allergy status to other drugs, medicaments and biological substances; Z79.890 Hormone replacement therapy; Z79.899 Other long term (current) drug therapy; Z79.84 Long term (current) use of oral hypoglycemic drugs
CPT/HCPCS: J1100; J1200; J1885

== ENCOUNTER 2021-08-01 22:54 | Emergency (ER) | payer MEDICARE ==
[2021-08-02 00:10] LABS: COLLECTION METHOD CLEAN CATCH
[2021-08-02 00:37] LABS: PH 6 (5-8); SQUAMOUS EPITHELIAL 0-2 /hpf; URINE APPEARANCE Clear; URINE BACTERIA None Seen /hpf; URINE BILIRUBIN Negative (NEGATIVE); URINE BLOOD Negative (NEGATIVE); URINE COLOR Yellow; URINE GLUCOSE Negative (NEGATIVE); URINE KETONE Negative (NEGATIVE); URINE LEUKOCYTE ESTERASE 1+ (NEGATIVE); URINE NITRATE Negative (NEGATIVE); URINE PROTEIN(semi-quant) Negative (NEGATIVE); URINE RBC 0-2 /hpf; URINE UROBILINOGEN Negative (NEGATIVE)
[2021-08-02 00:40] LABS: TRICYCLIC ANTIDEPRESS URINE NEGATIVE
[2021-08-02 00:59] LABS: BASO % 0.4 % (0.0-2.0); EOS # 0.2 K/mm3 (0.0-0.7); EOS % 1.6 % (0-4.0); GRAN # 5.3 K/mm3 (1.4-6.5); GRAN % 55.9 % (42.2-75.2); HEMATOCRIT 38.8 % (37.0-47.0); HEMOGLOBIN 12.5 g/dl (12.5-16.0); LYMPH # 3.2 K/mm3 (1.2-3.4); LYMPH % 33.5 % (20.0-51.0); MEAN CELL VOLUME 89 fl (80.0-100.0); MEAN CORPUSCULAR HEMOGLOBIN 29 pg (27.0-31.0); MEAN CORPUSCULAR HGB CONC 32 g/dl (33.0-37.0); MEAN PLATELET VOLUME 11.7 fl (7.4-10.4); MONO # 0.8 K/mm3 (0.1-0.6); MONO % 8.1 % (1.7-9.3); PLATELET COUNT 176 K/mm3 (130-400); RED BLOOD COUNT 4.36 M/mm3 (4.10-5.30); REDCELL DISTRIBUTION WIDTH-CV 13.2 % (11.5-14.5)
[2021-08-02 01:25] LABS: ALANINE AMINOTRANSFERASE 24 U/L (0-55); ALBUMIN 3.6 gm/dL (3.5-5.0); ALKALINE PHOSPHATASE 50 U/L (40-150); ANION GAP 12 mmol/L (7-16); AST,SGOT 16 U/L (5-34); BILIRUBIN,TOTAL 0.3 mg/dL (0.2-1.2); BLOOD UREA NITROGEN 12 mg/dL (10-20); CALCIUM 9.1 mg/dL (8.4-10.2); CARBON DIOXIDE 21 mmol/L (22-29); CHLORIDE 107 mmol/L (98-107); CREATININE, serum 0.74 mg/dL (0.57-1.11); GLUCOSE 118 mg/dL (70-99); POTASSIUM 4.1 mmol/L (3.5-4.5); SODIUM 140 mmol/L (136-145); TOTAL PROTEIN 6.6 gm/dL (6.2-8.1)
[2021-08-02 02:14] LABS: ACETAMINOPHEN < 1 ug/mL (10-30); ALCOHOL(ethanol),MEDICAL < 10 mg/dL; SALICYLATE < 5.0 mg/dL
[2021-08-02 02:30] LABS: TSH w REFLEX 4.063 uIU/mL (0.350-4.940)
[2021-08-02] MEDS ORDERED: BUSPAR5 MG PO (07:35)
[2021-08-02] MEDS ORDERED: RISPERDAL 1M1 MG/TAB PO (07:36)
[2021-08-02] MEDS ORDERED: COLACE 100100 MG/CAP PO (07:36)
[2021-08-02 17:29] VITALS: TEMP 98.5
[2021-08-02 21:15] VITALS: BP 146/112; PULSE 97
== END 2021-08-02 21:15 ==
LOC: COL.ER 22:54
PROVIDERS: Nurse Practitioner Primary Care
DX: R45.851 Suicidal ideations (principal); R44.0 Auditory hallucinations; E11.9 Type 2 diabetes mellitus without complications; I10 Essential (primary) hypertension; E78.5 Hyperlipidemia, unspecified; G43.909 Migraine, unspecified, not intractable, without status migrainosus; F41.9 Anxiety disorder, unspecified; F32.A Depression, unspecified; K21.9 Gastro-esophageal reflux disease without esophagitis; E07.9 Disorder of thyroid, unspecified; Z20.822 Contact with and (suspected) exposure to COVID-19; Z79.890 Hormone replacement therapy; Z79.84 Long term (current) use of oral hypoglycemic drugs; Z79.899 Other long term (current) drug therapy

== ENCOUNTER 2021-10-08 02:34 | Emergency (ER) | payer MEDICARE ==
[~2021-10-08] VITALS: Ht 167.6 cm; Wt 152.3 kg
[~2021-10-08 02:34] MED LIST changes: +BUSPAR5 MG PO; +RISPERDAL 1M1 MG/TAB PO
[2021-10-08 02:41] VITALS: TEMP 97.6
[2021-10-08 05:12] VITALS: BP 126/74; PULSE 74
== END 2021-10-08 05:10 | disposition home or self-care (01) ==
LOC: COL.ER 02:34
DX: R51.9 Headache, unspecified (principal); I10 Essential (primary) hypertension; E78.5 Hyperlipidemia, unspecified; E11.40 Type 2 diabetes mellitus with diabetic neuropathy, unspecified; F41.9 Anxiety disorder, unspecified; F32.A Depression, unspecified; K21.9 Gastro-esophageal reflux disease without esophagitis; F25.9 Schizoaffective disorder, unspecified; G89.29 Other chronic pain; E07.9 Disorder of thyroid, unspecified; Z86.69 Personal history of other diseases of the nervous system and sense organs; Z79.899 Other long term (current) drug therapy; Z79.84 Long term (current) use of oral hypoglycemic drugs; Z79.1 Long term (current) use of non-steroidal anti-inflammatories (NSAID); Z79.890 Hormone replacement therapy
CPT/HCPCS: J1100; J1790; J1885; J2765; J7030

== ENCOUNTER 2021-10-22 21:25 | Emergency (ER) | payer MEDICARE ==
[~2021-10-22] VITALS: Ht 167.6 cm; Wt 152.3 kg
[2021-10-23 01:43] VITALS: BP 125/93; PULSE 79; TEMP 98.5
== END 2021-10-23 01:43 | disposition home or self-care (01) ==
LOC: COL.ER 21:25
DX: B34.9 Viral infection, unspecified (principal); Z20.822 Contact with and (suspected) exposure to COVID-19
CPT/HCPCS: J1885

== ENCOUNTER 2021-12-10 06:35 | Emergency (ER) | payer MEDICARE ==
[~2021-12-10] VITALS: Ht 167.6 cm; Wt 159.1 kg
[2021-12-10 06:51] VITALS: BP 101/69; TEMP 97.5
[2021-12-10] MEDS ORDERED: EUCERIN1 CRE TOP (08:08)
[2021-12-10 08:26] VITALS: PULSE 76
[2021-12-10 08:31] LABS: COLLECTION METHOD CLEAN CATCH
[2021-12-10 08:38] LABS: PH 7 (5-8); SQUAMOUS EPITHELIAL None Seen /hpf (0-10); URINE APPEARANCE Clear (CLEAR/HAZY); URINE BACTERIA Rare /hpf (NONE SEEN); URINE BILIRUBIN Negative (NEGATIVE); URINE BLOOD Negative (NEGATIVE); URINE COLOR Straw (YELLOW); URINE GLUCOSE Negative (NEGATIVE); URINE KETONE Negative (NEGATIVE); URINE LEUKOCYTE ESTERASE Negative (NEGATIVE); URINE NITRATE Negative (NEGATIVE); URINE PROTEIN(semi-quant) Negative (NEGATIVE); URINE RBC 0-2 /hpf (0-2); URINE UROBILINOGEN Negative (NEGATIVE)
== END 2021-12-10 08:26 | disposition home or self-care (01) ==
LOC: COL.ER 06:35
PROVIDERS: Emergency Medicine
DX: B34.9 Viral infection, unspecified (principal); Z20.822 Contact with and (suspected) exposure to COVID-19; Z79.891 Long term (current) use of opiate analgesic

== ENCOUNTER 2022-01-25 23:24 | Emergency (ER) | payer MEDICARE ==
[~2022-01-25] VITALS: Ht 167.6 cm; Wt 152.3 kg
[~2022-01-25 23:24] MED LIST changes: +EUCERIN1 CRE TOP
[2022-01-25 23:36] VITALS: BP 113/59; PULSE 68; TEMP 98.1
== END 2022-01-26 02:00 | disposition home or self-care (01) ==
LOC: COL.ER 23:24
DX: S60.221A Contusion of right hand, initial encounter (principal); L25.9 Unspecified contact dermatitis, unspecified cause; F41.9 Anxiety disorder, unspecified; W18.30XA Fall on same level, unspecified, initial encounter; Y93.89 Activity, other specified; Y92.039 Unspecified place in apartment as the place of occurrence of the external cause

== ENCOUNTER 2022-04-19 16:55 | Emergency (ER) | payer MEDICARE ==
[~2022-04-19] VITALS: Ht 167.6 cm; Wt 150.0 kg
[2022-04-19 17:19] VITALS: TEMP 98.8
[2022-04-19 19:29] VITALS: BP 124/78; PULSE 76
== END 2022-04-19 19:29 | disposition home or self-care (01) ==
LOC: COL.ER 16:55
DX: R51.9 Headache, unspecified (principal); G89.29 Other chronic pain; Z28.310 Unvaccinated for COVID-19
CPT/HCPCS: J0780; J1790; J1885

== ENCOUNTER 2022-04-26 22:38 | Emergency (ER) | payer MEDICARE ==
[~2022-04-26] VITALS: Ht 167.6 cm; Wt 150.0 kg
[2022-04-26 22:59] VITALS: TEMP 98.6
[2022-04-27 01:38] VITALS: BP 120/80; PULSE 80
== END 2022-04-27 01:38 | disposition home or self-care (01) ==
LOC: COL.ER 22:38
DX: H57.11 Ocular pain, right eye (principal)

== ENCOUNTER 2022-05-15 02:47 | Emergency (ER) | payer MEDICARE ==
[~2022-05-15] VITALS: Ht 167.6 cm; Wt 150.0 kg
[2022-05-15 02:56] VITALS: TEMP 98.2
[2022-05-15 06:56] LABS: BASO % 0.5 % (0.0-2.0); EOS # 0.1 K/mm3 (0.0-0.7); EOS % 1.4 % (0.0-4.0); GRAN # 3.7 K/mm3 (1.4-6.5); GRAN % 49.9 % (42.2-75.2); HEMATOCRIT 39.6 % (37.0-47.0); HEMOGLOBIN 12.7 g/dl (12.5-16.0); LYMPH # 2.9 K/mm3 (1.2-3.4); MEAN CELL VOLUME 92 fl (80.0-100.0); MEAN CORPUSCULAR HEMOGLOBIN 29 pg (27-31); MEAN CORPUSCULAR HGB CONC 32 g/dl (33.0-37.0); MEAN PLATELET VOLUME 11.9 fl (7.4-10.4); MONO # 0.6 K/mm3 (0.1-0.6); MONO % 7.9 % (1.7-9.3); PLATELET COUNT 223 K/mm3 (130-400); RED BLOOD COUNT 4.33 M/mm3 (4.10-5.30); REDCELL DISTRIBUTION WIDTH-CV 12.7 % (11.5-14.5)
[2022-05-15 07:16] LABS: ALANINE AMINOTRANSFERASE 22 U/L (0-55); ALBUMIN 3.8 gm/dL (3.5-5.0); ALKALINE PHOSPHATASE 41 U/L (40-150); ANION GAP 11 mmol/L (7-16); AST,SGOT 18 U/L (5-34); BILIRUBIN,TOTAL 0.3 mg/dL (0.2-1.2); BLOOD UREA NITROGEN 11 mg/dL (10-20); CALCIUM 9.5 mg/dL (8.4-10.2); CARBON DIOXIDE 25 mmol/L (22-29); CHLORIDE 107 mmol/L (98-107); CREATININE, serum 0.76 mg/dL (0.57-1.11); GLUCOSE 120 mg/dL (70-99); POTASSIUM 3.9 mmol/L (3.5-4.5); SODIUM 143 mmol/L (136-145); TOTAL PROTEIN 6.7 gm/dL (6.2-8.1)
[2022-05-15 07:19] LABS: ALCOHOL(ethanol),MEDICAL < 10 mg/dL (0-10); SALICYLATE < 5.0 mg/dL (15.0-30.0)
[2022-05-15 07:37] LABS: TSH w REFLEX 2.399 uIU/mL (0.350-4.940)
[2022-05-15 08:27] LABS: COLLECTION METHOD CLEAN CATCH
[2022-05-15 08:35] LABS: PH 7 (5-8); SQUAMOUS EPITHELIAL None Seen /hpf (0-10); URINE APPEARANCE Clear (CLEAR/HAZY); URINE BACTERIA None Seen /hpf (NONE SEEN); URINE BLOOD Negative (NEGATIVE); URINE COLOR Straw (YELLOW); URINE GLUCOSE Negative (NEGATIVE); URINE KETONE Negative (NEGATIVE); URINE NITRATE Negative (NEGATIVE); URINE PROTEIN(semi-quant) Negative (NEGATIVE); URINE RBC None Seen /hpf (0-2); URINE UROBILINOGEN Negative (NEGATIVE)
[2022-05-15 08:41] LABS: TRICYCLIC ANTIDEPRESS URINE NEGATIVE
[2022-05-15] MEDS ORDERED: LOFIBRA134 MG (11:26)
[2022-05-15] MEDS ORDERED: LEXAPRO20 MG (11:27)
[2022-05-15 15:45] VITALS: BP 136/85; PULSE 64
== END 2022-05-15 16:00 ==
LOC: COL.ER 02:47
PROVIDERS: Emergency Medicine
DX: F41.9 Anxiety disorder, unspecified (principal); Z20.822 Contact with and (suspected) exposure to COVID-19

== ENCOUNTER 2022-06-30 06:47 | Emergency (ER) | payer MEDICARE ==
[~2022-06-30] VITALS: Ht 167.6 cm; Wt 136.4 kg
[~2022-06-30 06:47] MED LIST changes: +LEXAPRO20 MG; +LOFIBRA134 MG
[2022-06-30 07:06] VITALS: TEMP 98.4
[2022-06-30 07:49] LABS: BASO # 0.1 K/mm3 (0.0-0.2); BASO % 0.8 % (0.0-2.0); EOS # 0.1 K/mm3 (0.0-0.7); EOS % 1.6 % (0.0-4.0); GRAN # 5.4 K/mm3 (1.4-6.5); GRAN % 67.5 % (42.2-75.2); HEMATOCRIT 41.5 % (37.0-47.0); HEMOGLOBIN 13.4 g/dl (12.5-16.0); LYMPH # 1.9 K/mm3 (1.2-3.4); LYMPH % 23.7 % (20.0-51.0); MEAN CELL VOLUME 92 fl (80.0-100.0); MEAN CORPUSCULAR HEMOGLOBIN 30 pg (27-31); MEAN CORPUSCULAR HGB CONC 32 g/dl (33.0-37.0); MEAN PLATELET VOLUME 11.5 fl (7.4-10.4); MONO # 0.5 K/mm3 (0.1-0.6); PLATELET COUNT 236 K/mm3 (130-400); RED BLOOD COUNT 4.51 M/mm3 (4.10-5.30); REDCELL DISTRIBUTION WIDTH-CV 13.1 % (11.5-14.5)
[2022-06-30 08:06] LABS: INR 1.1 (0.8-3.0); PROTHROMBIN TIME 12.5 SECONDS (9.7-12.8)
[2022-06-30 08:07] LABS: ALANINE AMINOTRANSFERASE 22 U/L (0-55); ALBUMIN 3.9 gm/dL (3.5-5.0); ALKALINE PHOSPHATASE 49 U/L (40-150); ANION GAP 9 mmol/L (7-16); AST,SGOT 20 U/L (5-34); BILIRUBIN,TOTAL 0.3 mg/dL (0.2-1.2); BLOOD UREA NITROGEN 10 mg/dL (10-20); CALCIUM 9.5 mg/dL (8.4-10.2); CARBON DIOXIDE 25 mmol/L (22-29); CHLORIDE 107 mmol/L (98-107); CREATININE, serum 0.79 mg/dL (0.57-1.11); GLUCOSE 141 mg/dL (70-99); POTASSIUM 3.9 mmol/L (3.5-4.5); SODIUM 141 mmol/L (136-145); TOTAL PROTEIN 7.1 gm/dL (6.2-8.1)
[2022-06-30 08:08] LABS: PARTIAL THROMBOPLASTIN TIME 32.5 SECONDS (26.0-37.0)
[2022-06-30 08:30] LABS: TROPONIN-I < 0.010 ng/mL (0.00-0.033)
[2022-06-30 08:31] LABS: D-DIMER < 200.00 ng/mLDDu (200-230)
[2022-06-30 09:52] VITALS: BP 107/74; PULSE 65
== END 2022-06-30 09:54 | disposition home or self-care (01) ==
LOC: COL.ER 06:47
PROVIDERS: Family Medicine
DX: G43.909 Migraine, unspecified, not intractable, without status migrainosus (principal); R73.9 Hyperglycemia, unspecified
CPT/HCPCS: J0595; J0780; J1200; J7120

== ENCOUNTER 2022-11-08 16:56 | Emergency (ER) | payer MEDICARE ==
[~2022-11-08] VITALS: Ht 167.6 cm; Wt 139.1 kg
[2022-11-08 17:06] VITALS: BP 128/74; TEMP 97.1
[2022-11-08 18:30] VITALS: PULSE 66
== END 2022-11-08 18:30 | disposition home or self-care (01) ==
LOC: COL.ER 16:56
DX: G43.909 Migraine, unspecified, not intractable, without status migrainosus (principal)
CPT/HCPCS: J1200; J1885; J2550

== ENCOUNTER 2023-12-07 01:54 | Emergency (ER) | payer MEDICARE ==
[~2023-12-07] VITALS: Ht 167.6 cm; Wt 135.7 kg
[2023-12-07 02:02] VITALS: TEMP 97.7
[2023-12-07] MEDS ORDERED: NS 500 ML IV ONE (02:30)
[2023-12-07] MEDS ORDERED: diphenhydrAMINE 50 MG/ML 1 ML VIAL IV ONE (02:30)
[2023-12-07] MEDS ORDERED: Ketorolac 30 MG/ML VIAL IV ONE (02:30)
[2023-12-07 02:59] LABS: BASO % 0.4 % (0.0-2.0); EOS # 0.1 K/mm3 (0.0-0.7); EOS % 1.5 % (0.0-4.0); GRAN # 4.8 K/mm3 (1.4-6.5); GRAN % 54.1 % (42.2-75.2); HEMOGLOBIN 13.8 g/dl (12.5-16.0); LYMPH # 3.2 K/mm3 (1.2-3.4); LYMPH % 36.3 % (20.0-51.0); MEAN CELL VOLUME 90 fl (80.0-100.0); MEAN CORPUSCULAR HEMOGLOBIN 30 pg (27-31); MEAN CORPUSCULAR HGB CONC 33 g/dl (33.0-37.0); MEAN PLATELET VOLUME 11.7 fl (7.4-10.4); MONO # 0.7 K/mm3 (0.1-0.6); MONO % 7.4 % (1.7-9.3); PLATELET COUNT 240 K/mm3 (130-400); RED BLOOD COUNT 4.65 M/mm3 (4.10-5.30); REDCELL DISTRIBUTION WIDTH-CV 12.6 % (11.5-14.5)
[2023-12-07 03:12] LABS: CALCIUM 9.8 mg/dL (8.4-10.2); CREATININE, serum 0.74 mg/dL (0.57-1.11); POTASSIUM 3.7 mmol/L (3.5-4.5)
[2023-12-07 04:12] VITALS: BP 115/56; PULSE 71
== END 2023-12-07 04:12 | disposition home or self-care (01) ==
LOC: COL.ER 01:54
PROVIDERS: Internal Medicine
DX: J06.9 Acute upper respiratory infection, unspecified (principal); G43.009 Migraine without aura, not intractable, without status migrainosus; Z86.16 Personal history of COVID-19
CPT/HCPCS: J1200; J1885; J2765; J7040

== ENCOUNTER 2023-12-22 04:28 | Emergency (ER) | payer MEDICARE ==
[~2023-12-22] VITALS: Ht 167.6 cm; Wt 136.4 kg
[~2023-12-22 04:28] MED LIST changes: +BUSPAR DIVIDOSE15 MG PO; -BUSPAR5 MG PO; -LEXAPRO20 MG; -LOFIBRA134 MG; +PROTONIX20 MG PO; +WELLBUTRIN SR150 M1 PO
[2023-12-22 04:31] VITALS: TEMP 97.9
[2023-12-22 04:59] LABS: COLLECTION METHOD CLEAN CATCH
[2023-12-22 05:12] LABS: URINE APPEARANCE CLEAR (CLEAR/HAZY); URINE BLOOD NEGATIVE (NEGATIVE); URINE COLOR YELLOW (YELLOW); URINE GLUCOSE NEGATIVE (NEGATIVE); URINE KETONE NEGATIVE (NEGATIVE); URINE NITRATE NEGATIVE (NEGATIVE); URINE PROTEIN(semi-quant) NEGATIVE (NEGATIVE); URINE UROBILINOGEN 0.2 E.U/dL (0.2-1.0)
[2023-12-22 05:26] LABS: TRICYCLIC ANTIDEPRESS URINE NEGATIVE (NEGATIVE)
[2023-12-22 05:29] LABS: BASO # 0.1 K/mm3 (0.0-0.2); BASO % 0.7 % (0.0-2.0); EOS # 0.1 K/mm3 (0.0-0.7); EOS % 1.5 % (0.0-4.0); GRAN # 4.8 K/mm3 (1.4-6.5); GRAN % 57.8 % (42.2-75.2); HEMATOCRIT 41.7 % (37.0-47.0); HEMOGLOBIN 13.8 g/dl (12.5-16.0); LYMPH # 2.6 K/mm3 (1.2-3.4); LYMPH % 31.8 % (20.0-51.0); MEAN CELL VOLUME 91 fl (80.0-100.0); MEAN CORPUSCULAR HEMOGLOBIN 30 pg (27-31); MEAN CORPUSCULAR HGB CONC 33 g/dl (33.0-37.0); MONO # 0.6 K/mm3 (0.1-0.6); MONO % 7.8 % (1.7-9.3); PLATELET COUNT 212 K/mm3 (130-400); REDCELL DISTRIBUTION WIDTH-CV 12.4 % (11.5-14.5)
[2023-12-22 05:50] LABS: ACETAMINOPHEN < 7.0 ug/mL (10-30); ALANINE AMINOTRANSFERASE 24 U/L (0-55); ALBUMIN 3.8 gm/dL (3.5-5.0); ALKALINE PHOSPHATASE 46 U/L (40-150); ANION GAP 10 mmol/L (7-16); AST,SGOT 22 U/L (5-34); BILIRUBIN,TOTAL 0.1 mg/dL (0.2-1.2); BLOOD UREA NITROGEN 11 mg/dL (10-20); CALCIUM 9.5 mg/dL (8.4-10.2); CARBON DIOXIDE 23 mmol/L (22-29); CHLORIDE 109 mmol/L (98-107); CREATININE, serum 0.69 mg/dL (0.57-1.11); GLUCOSE 118 mg/dL (70-99); POTASSIUM 3.8 mmol/L (3.5-4.5); SODIUM 142 mmol/L (136-145); TOTAL PROTEIN 6.7 gm/dL (6.2-8.1)
[2023-12-22 05:53] LABS: ALCOHOL(ethanol),MEDICAL < 10 mg/dL (0-10); SALICYLATE < 5.0 mg/dL (15.0-30.0)
[2023-12-22] MEDS ORDERED: metFORMIN XR 500 MG TAB PO SCH (10:03)
[2023-12-22] MEDS ORDERED: busPIRone 7.5 MG TABLET PO SCH (10:11)
[2023-12-22] MEDS ORDERED: Docusate Sodium 100 MG CAP PO SCH (10:11)
[2023-12-22] MEDS ORDERED: buPROPion SR (12-HR) 150 MG TAB PO SCH (10:11)
[2023-12-22] MEDS ORDERED: Escitalopram 10 MG TAB PO SCH (10:15)
[2023-12-22] MEDS ORDERED: risperiDONE 1 MG TAB PO SCH (10:17)
[2023-12-22] MEDS ORDERED: SENNA-LAX8.6 MG PO (10:21)
[2023-12-22 16:02] VITALS: BP 119/66; PULSE 69
[2023-12-22] MEDS ORDERED: Fenofibrate 54 MG TABLET PO SCH (21:00)
[2023-12-23] MEDS ORDERED: Lisinopril 20 MG TAB PO SCH (09:00)
== END 2023-12-22 16:20 ==
LOC: COL.ER 04:28
PROVIDERS: Emergency Medicine
DX: R45.851 Suicidal ideations (principal); G89.29 Other chronic pain; F41.9 Anxiety disorder, unspecified; T42.6X6A Underdosing of other antiepileptic and sedative-hypnotic drugs, initial encounter; Z91.128 Patient's intentional underdosing of medication regimen for other reason